=== PATIENT | male | born 1950 | race Caucasian/White ===

== ENCOUNTER 2021-11-01 18:25 | Inpatient (IN) | payer MEDICARE, SELFPAY ==
[2021-11-01 18:26] VITALS: BP 124/70; PULSE 92; RESP 16; TEMP 36.8; O2SAT 97; BMI 33.2
[2021-11-01 20:28] VITALS: BP 130/78; PULSE 78; RESP 14; TEMP 37.1; O2SAT 100
[2021-11-01 21:45] VITALS: BP 134/64; PULSE 88; RESP 14; TEMP 36.6; O2SAT 100
[2021-11-01 21:54] LABS: Absolute Lymphocyte Count 3.22 X10^3/uL (0.83-4.51); Absolute Neutrophil Count 7.6 X10^3/uL (2.0-7.7); Basophil# 0.07 X10^3/uL; Basophil% 0.6 % (0-1); Eosinophil# 0.37 X10^3/uL; Hematocrit 43.8 % (40-54); Hemoglobin 14.8 g/dL (13.0-16.5); Lymphocyte # 3.22 X10^3/ul (0.83-4.51); Lymphocyte % 26.1 % (19-41); Mean Corp Hgb Conc 33.8 g/dL (32-36); Mean Corpuscular Volume 88.8 fL (80-94); Mean Platelet Vol. 9.1 fl (6.2-12.0); Monocyte# 1.02 X10^3/uL; Monocyte% 8.3 % (0-10); NRBC Flagged by Analyzer 0 % (0-5); Neutrophil # 7.61 X10^3/uL (2.7-7.7); Neutrophil % 61.6 % (47-70); Platelet Count 215 K/mm3 (150-450); RBC Distribution Width CV 14.6 % (11.6-14.6); RBC Distribution Width SD 47.7 fl (35.1-43.9); Red Blood Count 4.93 M/mm3 (4.6-6.2); White Blood Count 12.3 K/mm3 (4.4-11.0)
[2021-11-01 22:00] VITALS: BP 134/78; PULSE 78; RESP 14; TEMP 36.6; O2SAT 98
--- NOTE | 2021-11-01 22:10 | RAD_ITS ---
EXAM: XR Foot Min 3 Views LEFT HISTORY: Injury/ 3rd toe infection TECHNIQUE: XR Foot Min 3 Views LEFT COMPARISON: None. LIMITATIONS: None. FINDINGS: 3 views of the left foot were obtained. Soft tissue swelling at the dorsum of the foot. There has been amputation at the fourth metatarsophalangeal joint. No gross osseous erosion to suggest osteomyelitis. No acute fracture. No dislocation. RAD/Foot min 3 Views IMPRESSION: Postsurgical changes. No definitive evidence of osteomyelitis. Electronically Signed: Maverick Palacios MD at 22:54 EDT ,
[2021-11-01 22:24] LABS: Anion Gap 7 (5-15); BUN 25 mg/dL (7-18); BUN/Creat Ratio 17.6 RATIO (10-20); Calcium,Total 9.5 mg/dL (8.5-10.1); Chloride 105 mmol/L (98-107); Creatinine, Serum 1.42 mg/dL (0.70-1.30); EST Glomerular Filtration Rate 52 mL/min (>60); Est Glom Filt Rate - Afr Amer 63 mL/min (>60); Estimated Creatinine Clearance 53.14 ml/min; Glucose 101 mg/dL (74-106); Potassium 4.4 mmol/L (3.5-5.1); Sodium Level 138 mmol/L (136-145)
[2021-11-01 22:28] LABS: Erythrocyte Sedimentation Rate 35 mm/hr (0-20)
[2021-11-01 23:00] VITALS: BP 134/78; PULSE 82; RESP 14; TEMP 37.1; O2SAT 100
[2021-11-02] VITALS (9 sets, daily range): BP systolic 117–142; BP diastolic 63–91; PULSE 65–84; RESP 16–18; TEMP 36.4–36.8; O2SAT 95–99; BMI 32.7
--- NOTE | 2021-11-02 00:10 | MRI_ITS ---
STUDY: MRI LEFT FOREFOOT WITHOUT CONTRAST REASON FOR EXAM: Infection of the second toe. TECHNIQUE: Standardized fat and water weighted pulse sequences were obtained in all 3 orthogonal planes. COMPARISON: Radiographs 11/01/2021. FINDINGS: Normal metatarsophalangeal joint of the hallux. There is arthrosis of the sesamoids-first metatarsal articulations with small marginal osteophytes and chondral thinning (T2 short axis images 14, 15). Normal interphalangeal joint of the hallux. Normal proximal and distal phalanges of the great toe. Normal medial and lateral heads of the flexor hallucis brevis tendons. Normal flexor and extensor hallucis longus tendons. Normal second, third and fifth metatarsophalangeal (MTP) joints. There is amputation of the fourth digit at the metatarsophalangeal joint. There is bone edema of the second distal phalanx (inversion recovery sagittal images 16, 17) with corresponding decreased T1 bone marrow signal (T1 sagittal images 16, 17) consistent with osteomyelitis. There is mild bone edema in the second middle phalanx (inversion recovery sagittal image 17) without decreased T1 bone marrow signal, either reactive bone edema or early osteomyelitis. There is an intermetatarsal neuroma of the second webspace (T1 short axis image 20) measuring 0.6 cm in transverse dimension. There is arthropathy of the first metatarsophalangeal joint with chondral thinning, subchondral cystic change and bone edema (inversion recovery sagittal images 21-23). There is arthropathy of the second tarsometatarsal articulation with chondral thinning and subchondral bone edema (inversion recovery images 16, 17). There is fat replacement of the intrinsic muscles of the forefoot (T1 sagittal images 5-19). There is edema in the subcutis adipose space. There is no demonstrated soft tissue abscess. There is a small ganglion cyst dorsal to the second metatarsal base (inversion recovery short axis image 7) measuring 0.6 cm in transverse dimension. MRI/Lower Ext/No Jt/w/o IMPRESSION: Osteomyelitis of the second distal phalanx, and mild bone edema of the second middle phalanx, either reactive bone edema or early osteomyelitis. Arthropathy of the first and second tarsometatarsal articulations. Arthrosis of the sesamoids-first metatarsal articulations. Intermetatarsal neuroma of the second webspace. Fat replacement of the intrinsic muscles of the forefoot suggestive of peripheral neuropathy. No demonstrated soft tissue abscess. Electronically Signed: Clive Valdez MD at 11:02 EDT ,
--- NOTE | 2021-11-02 00:10 | EX.ED.DYSGE1 ---
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 Patient follows with podiatry and has had a callus on the base of his second and third toe that is being watched and shaved off by his document review specialist. Notes over the past 24 hours he has had increased drainage, redness and swelling of the second toe. He does not have pain but notes he does have neuropathy and cannot really feel his feet well. Denies any injuries. No other complaints at this time. No reports of any fever or chills. No systemic symptoms. He states he is otherwise feeling well. Is not currently on any antibiotics. [facility] Medical History Gout HTN (hypertension) Kidney disease Neuropathy Home Medications multivitamin (Daily Multiple) 1 tab PO DAILY 01/14/15 [History Last Taken Unknown] metoprolol tartrate 25 mg tablet 25 mg PO BID ##60 01/15/15 [Rx Last Taken Unknown] rivaroxaban 15 mg tablet (Xarelto) 15 mg PO BID ##41 02/07/15 [Rx Last Taken Unknown] Allergy/AdvReac Type Severity Reaction Status Date / Time amoxicillin trihydrate Allergy Rash Verified 11/01/21 18:25 [From Augmentin] potassium clavulanate Allergy Rash Verified 11/01/21 18:25 [From Augmentin] Social History Smoking Status: Never smoker ROS [facility] ED Constitutional Constitutional ED: Denies chills, fever(s) or malaise Eyes Eyes: Denies blurry vision or loss of vision ENT ENT ED: Denies rhinorrhea or sore throat Cardiovascular Cardiovascular: Denies chest pain or dizziness Respiratory/Chest Respiratory/Chest: Denies cough or dyspnea Gastrointestinal Gastrointestinal: Denies nausea or vomiting Musculoskeletal Musculoskeletal: Denies arthralgias or myalgias Integumentary Reports wounds and other Details: Drainage and redness from left second toe ; Denies rash Neurologic Neurologic: Denies focal weakness, headache(s), paresthesias or weakness Psychiatric Psychiatric: Denies anxiety or behavioral changes EXAM Physical Exam Const Vital Signs: 11/01/21 18:26 11/01/21 20:28 11/01/21 21:45 Temperature 98.3 F 98.7 F 97.8 F Temperature Source Temporal Temporal Temporal Pulse Rate 92 78 88 Respiratory Rate 16 14 14 Blood Pressure 124/70 H 130/78 H 134/64 H Blood Pressure Mean 88 95 87 Pulse Ox 97 100 100 Oxygen Delivery Method Room Air Room Air Room Air 11/01/21 22:00 11/01/21 23:00 Temperature 97.9 F 98.7 F Temperature Source Temporal Temporal Pulse Rate 78 82 Respiratory Rate 14 14 Blood Pressure 134/78 H 134/78 H Blood Pressure Mean 96 96 Pulse Ox 98 100 Oxygen Delivery Method Room Air Room Air Positive well nourished, well developed and no apparent distress General Appearance ED: well developed HEENT Reports normocephalic atraumatic Nose: no nasal discharge External Ear: external ears normal Mouth ED: Yes moist mucous membranes normal Eyes PERRL and EOMs intact bilaterally Neck full ROM and no meningeal signs Chest Wall inspection of chest normal Resp normal respiratory effort and normal air movement Cardio regular rate and regular rhythm GI normal to inspection, nondistended, normoactive bowel sounds Extremity full ROM Extremity Narrative: Patient has hammertoe deformity of the toes. Diffuse swelling of the left second toe. Surgically absent left fourth toe. 2+ bilateral DP pulses Neuro oriented x3 and no focal motor deficits Psych mental status grossly normal and thought process normal Skin Skin Narrative: Slightly green tinge purulent drainage from the distal left second toe. There is erythema diffusely of the left second toe spreading to the distal, dorsal forefoot. MDM MDM MDM Narrative Medical decision making narrative: Patient evaluated for 24 to 48 hours of worsening redness and swelling of his left second toe. I am concerned for osteomyelitis/infection. He systemically is well-appearing with normal vital signs. I do not suspect sepsis at this time. He does have a mild leukocytosis of 12.3. ESR and CRP are elevated. He has an elevated creatinine 1.42 which does appear to be near his baseline. X-ray interpreted by myself as well as radiology does not show any acute abnormalities. On repeat evaluation patient now has lymphangitic streaking going up the medial aspect of the foot up to the ankle. Given the progression of the short time that he has been here we will admit him for IV antibiotics. He started on IV vancomycin and meropenem given that he has a documented allergy to amoxicillin. Case was discussed with his document review specialist who will also see him tomorrow. Patient and are agreeable this plan of care. Patient denies any pain while in the emergency room. Lab Data Attestation: I reviewed the patient's lab results. Labs: Laboratory Results - last 24 hr 11/01/21 11/01/21 21:32 21:32 WBC 12.3 H RBC 4.93 Hgb 14.8 Hct 43.8 MCV 88.8 MCH 30.0 MCHC 33.8 RDW Std Deviation 47.7 H RDW Coeff of Jay 14.6 Plt Count 215 MPV 9.1 Immature Gran % (Auto) 0.400 Neut % (Auto) 61.6 Lymph % (Auto) 26.1 [place] % (Auto) 8.3 Eos % (Auto) 3.0 Baso % (Auto) 0.6 Absolute Neuts (auto) 7.6 Absolute Lymphs (auto) 3.22 Nucleated RBC % 0 ESR 35 H Sodium 138 Potassium 4.4 Chloride 105 Carbon Dioxide 26.0 Anion Gap 7 BUN 25 H Creatinine 1.42 H Estim Creat Clear Calc 53.14 Est GFR (MDRD) Af Amer 63 Est GFR (MDRD) Non-Af 52 L BUN/Creatinine Ratio 17.6 Glucose 101 Calcium 9.5 C-React Prot High Sens 61.90 H Radiography Diagnostic Testing: Clinical Impression(s) from Imaging Studies Foot X-Ray 11/01/21 22:10 IMPRESSION: Postsurgical changes. No definitive evidence of osteomyelitis. Electronically Signed: Maverick Palacios MD at 22:54 EDT , Discharge Plan Triage Chief Complaint: Wound Check ED Provider: Afia Frye Dx/Rx/DC Orders Clinical Impression: Cellulitis of left foot, Renal insufficiency, Ulcer of left foot, Leukocytosis Prescriptions: No Action multivitamin [Daily Multiple] 1 EACH tablet 1 tab PO DAILY Label Comments: supplement metoprolol tartrate 25 MG tablet 25 mg PO BID Qty: 60 0RF Label Comments: blood pressure/heart rivaroxaban [Xarelto] 15 MG tablet 15 mg PO BID Qty: 41 0RF Primary Care Provider: Karla Ryan Referrals: Karla Ryan MD [Primary Care Provider] - Disposition Disposition: Acute Care [facility]
--- NOTE | 2021-11-02 00:36 | HP.PCM.HOS_ITS ---
[facility] - General General Date of Admission: 11/02/21 Date of Service: 11/02/21 Chief Complaint: Left foot cellulitis HPI Narrative JULIA VERA, is a 71 M who presented to the emergency department at [facility] on 11/01/2021 with erythema and swelling of the left second digit of his foot. Patient has a history of a fourth toe amputation with neuropathy treated by dietary previously. The patient follows with podiatry and had a callus on the base of his second and third toe that had been watched closely and recently shaved off. The patient noted that over the last 24 hours he had increased drainage redness and edema of the second toe. He does not have significant pain however he has neuropathy at baseline. He had no known injuries other than the above. He has no other complaints and denies fever and chills. No systemic involvement at this time. He had not been treated with antibiotics. He developed lymphangitic streaking up into the medial ankle while in the emergency department. Vital signs on presentation showed a temperature of 98.3, pulse of 92, blood pressure 124/70, respirate of 16, and saturation of 97% on room air. His CBC showed a mild leukocytosis at 12.3 with no left shift. His ER*was elevated at 35 and his CRP was elevated at 61.9. His chemistry panel showed normal electrolytes with an elevated BUN and creatinine at 25 and 1.42 respectively. These appear to be at his baseline. Cultures of the toe and staff aureus PCR of the wound were performed in the emergency department and pending on admission. Imaging of the foot was performed and showed no evidence of osteomyelitis but di d show soft tissue swelling. Podiatry was consulted by the emergency department and given his elevated inflammatory markers and appearance an MRI was requested and antibiotics were initiated and Vanco and meropenem given his penicillin allergy at baseline. [facility] Medical History (Updated 11/02/21 @ 00:[address] Katie Rodriguez DO) Amputation toe Gout HTN (hypertension) Kidney disease Neuropathy Obesity (BMI 30.0-34.9) Stage 3b chronic kidney disease (CKD) Home Medications multivitamin (Daily Multiple) 1 tab PO DAILY VITAMIN 01/14/15 [History Last Taken Unknown] allopurinol 100 mg tablet 100 tab PO DAILY GOUT 11/02/21 [History Last Taken Unknown] colchicine 0.6 mg tablet 1 tab PO MOWEFR GOUT 11/02/21 [History Last Taken Unknown] lisinopril 10 mg tablet 10 tab PO DAILY BP 11/02/21 [History Last Taken Unknown] Allergy/AdvReac Type Severity Reaction Status Date / Time amoxicillin trihydrate Allergy Rash Verified 11/01/21 18:25 [From Augmentin] potassium clavulanate Allergy Rash Verified 11/01/21 18:25 [From Augmentin] Family History (Updated 11/02/21 @ 00:[address] Katie Rodriguez DO) Other Hypertension Social History (Updated 11/02/21 @ 00:[address] Katie Rodriguez DO) household members: spouse housing: house Smoking Status: Never smoker alcohol intake: never substance use type: does not use Vital Signs Vital Signs Vital Signs: 11/01/21 18:26 11/01/21 20:28 11/01/21 21:45 Temperature 98.3 F 98.7 F 97.8 F Temperature Source Temporal Temporal Temporal Pulse Rate 92 78 88 Respiratory Rate 16 14 14 Blood Pressure 124/70 H 130/78 H 134/64 H Blood Pressure Mean 88 95 87 Pulse Ox 97 100 100 Oxygen Delivery Method Room Air Room Air Room Air 11/01/21 22:00 11/01/21 23:00 11/02/21 00:04 Temperature 97.9 F 98.7 F 98.3 F Temperature Source Temporal Temporal Oral Pulse Rate 78 82 69 Respiratory Rate 14 14 16 Blood Pressure 134/78 H 134/78 H 133/69 H Blood Pressure Mean 96 96 90 Pulse Ox 98 100 97 Oxygen Delivery Method Room Air Room Air Room Air Weight Weight: 114.2 kg Body Mass Index (BMI) 33.2 Physical Exam Const alert, oriented x3, no apparent distress, healthy appearing and well nourished Constitutional Narrative: Obese older white male sitting up in bed, at bedside, patient appears comfortable and nontoxic General Appearance: cooperative HEENT normocephalic, head/scalp atraumatic, hearing grossly normal bilaterally and moist oral mucous membranes HEENT Narrative: Dentition is poor, Mallampati is 2-3, no thrush Mouth: oral and palatal mucosa normal Eyes PERRL, EOMs intact bilaterally and conjunctivae normal Eyes Narrative: No scleral icterus Neck no lymphadenopathy, supple, no JVD and no carotid bruits Neck Narrative: Trachea midline, no thyroid enlargement Resp normal respiratory effort, no retractions, no use of accessory muscles and clear to auscultation bilaterally Auscultation: Negative for crackles, rales, rhonchi or wheezes Cardio regular rate, regular rhythm, S1 normal heart sound, S2 normal heart sound, no murmurs, no rub, no gallops, no clicks and no JVD GI normal to inspection, nondistended, normoactive bowel sounds, soft to palpation, non-tender and non-distended; Negative for hepatosplenomegaly Extremity Extremity Narrative: Mild edema left lower extremity, erosion/ulceration at the distal tip of the second digit with missing digits on his left foot as well, some lymphangitic streaking up to the ankle medially, second digit is erythematous, right lower foot without cyanosis clubbing or edema Skin skin turgor normal, no jaundice, no petechiae and no mottling Neuro oriented x3, CN's II-XII intact bilaterally, moves all extremities and no focal motor deficits Neuro Narrative: Bilateral lower extremity neuropathy Sensorium / Orientation: awake and alert Speech: speech normal Motor Exam: strength 5/5 throughout Psych affect normal Psych Narrative: Very pleasant and appropriately interactive Results Lab / Micro Data Attestation: I reviewed the patient's lab results. Result Diagrams: 11/01/21 21:32 11/01/21 21:32 Labs: Laboratory Results - last 24 hr 11/01/21 21:32: WBC 12.3 H, RBC 4.93, Hgb 14.8, Hct 43.8, MCV 88.8, MCH 30.0, MCHC 33.8, RDW Std Deviation 47.7 H, RDW Coeff of Jay 14.6, Plt Count 215, MPV 9.1, Immature Gran % (Auto) 0.400, Neut % (Auto) 61.6, Lymph % (Auto) 26.1, [place] % (Auto) 8.3, Eos % (Auto) 3.0, Baso % (Auto) 0.6, Absolute Neuts (auto) 7.6, Absolute Lymphs (auto) 3.22, Nucleated RBC % 0, ESR 35 H 11/01/21 21:32: Sodium 138, Potassium 4.4, Chloride 105, Carbon Dioxide 26.0, Anion Gap 7, BUN 25 H, Creatinine 1.42 H, Estim Creat Clear Calc 53.14, Est GFR (MDRD) Af Amer 63, Est GFR (MDRD) Non-Af 52 L, BUN/Creatinine Ratio 17.6, Glucose 101, Calcium 9.5, C-React Prot High Sens 61.90 H Radiology Impression Foot X-Ray 11/01/21 22:10 IMPRESSION: Postsurgical changes. No definitive evidence of osteomyelitis. Electronically Signed: Maverick Palacios MD at 22:54 EDT , Assessment & Plan Assessment/Plan (1) Cellulitis of left foot: (2) Ulcer of left foot: (3) Leukocytosis: (4) Obesity (BMI 30.0-34.9): PLAN: Plan Ulceration/cellulitis of the left foot -Concern for osteomyelitis of the second digit -Sed rate and CRP are elevated -Wound cultures and wound MRSA PCR pending -MRI in a.m. -Will make n.p.o. for now in case patient is able to go to the OR tomorrow -X-ray of the foot performed the emergency department that showed postsurgical changes and no definitive evidence of OM -Vancomycin and meropenem given penicillin allergy -Consult podiatry Leukocytosis -Suspect related to the above -Repeat CBC in a.m. -Should trend down with antibiotic treatment History of gout -Continue allopurinol and colchicine Hypertension -Continue lisinopril CKD stage IIIb -Serum creatinine 1.42 on admission which appears to be his baseline -Continue to monitor -Avoid nephrotoxins Obesity -BMI 33.2 -Recommend weight loss -Complicates treatment, prognosis, outcomes DVT prophylaxis -Lovenox subcu daily -SCDs CODE STATUS Full code verified the emergency department on admission Charges/Coding Visit Charges Inpatient E&M: 36547 Init Hosp L3
--- NOTE | 2021-11-02 03:37 | PCM.RX.CS ---
Consult Pharmacy has been consulted to manage selected antiobiotic: Vancomycin Type of Consult: New start Suspected Infection: Skin/Soft tissue Labs: Sodium 138 mmol/L (136-145) 11/01/21 21:32 Potassium 4.4 mmol/L (3.5-5.1) 11/01/21 21:32 Chloride 105 mmol/L (98-107) 11/01/21 21:32 Carbon Dioxide 26.0 mmol/L (21.0-32.0) 11/01/21 21:32 Anion Gap 7 (5-15) 11/01/21 21:32 BUN 25 mg/dL (7-18) H 11/01/21 21:32 Creatinine 1.42 mg/dL (0.70-1.30) H 11/01/21 21:32 Est GFR (MDRD) Af Amer 63 mL/min (>60) 11/01/21 21:32 Est GFR (MDRD) Non-Af 52 mL/min (>60) L 11/01/21 21:32 BUN/Creatinine Ratio 17.6 RATIO (10-20) 11/01/21 21:32 Glucose 101 mg/dL (74-106) 11/01/21 21:32 Weight used for dosin.1 kg Estimated Creatinine Clearance: 61.5 Goal Trough: 10-15 mcg/mL Pharmacy Plan for Drug Dosing: Pharmacy Service will continue to monitor and adjust dosing as required. Medications Vancomycin HCl (Vancomycin) 1,000 mg in 200 mls @ 200 mls/hr IV Q12H MERCED Discontinued Medications Vancomycin HCl 2,000 mg/ (Sodium Chloride) 540 mls @ 250 mls/hr IV X1 ONE Stop: 11/02/21 02:16 Last Admin: 11/02/21 01:25 Dose: 250 mls/hr Follow-Up Labs: Trough Vancomycin Labs to be done on [date and time ordered]: 11/03 @ 1300
[2021-11-02 06:04] LABS: M R Staph aureus DNA By PCR Negative (Negative); Probe Check PASS; Specimen Processing Control PASS; Staph aureus DNA By PCR NEGATIVE (Negative)
[2021-11-02 06:39] LABS: Absolute Lymphocyte Count 3.05 X10^3/uL (0.83-4.51); Absolute Neutrophil Count 5.6 X10^3/uL (2.0-7.7); Basophil# 0.06 X10^3/uL; Basophil% 0.6 % (0-1); Eosinophil# 0.44 X10^3/uL; Eosinophils% 4.3 % (0-5); Hemoglobin 14.9 g/dL (13.0-16.5); Lymphocyte # 3.05 X10^3/ul (0.83-4.51); Mean Corp Hgb Conc 33.1 g/dL (32-36); Mean Corpuscular Hgb 29.5 pg (27.0-32.0); Mean Corpuscular Volume 89.1 fL (80-94); Mean Platelet Vol. 9.6 fl (6.2-12.0); Monocyte# 0.96 X10^3/uL; Monocyte% 9.4 % (0-10); NRBC Flagged by Analyzer 0 % (0-5); Neutrophil % 55.1 % (47-70); Platelet Count 220 K/mm3 (150-450); RBC Distribution Width CV 14.6 % (11.6-14.6); RBC Distribution Width SD 47.7 fl (35.1-43.9); Red Blood Count 5.05 M/mm3 (4.6-6.2); White Blood Count 10.2 K/mm3 (4.4-11.0)
[2021-11-02 07:03] LABS: Anion Gap 6 (5-15); BUN 23 mg/dL (7-18); BUN/Creat Ratio 18.5 RATIO (10-20); Calcium,Total 9.3 mg/dL (8.5-10.1); Chloride 106 mmol/L (98-107); Creatinine, Serum 1.24 mg/dL (0.70-1.30); EST Glomerular Filtration Rate 61 mL/min (>60); Est Glom Filt Rate - Afr Amer 74 mL/min (>60); Glucose 101 mg/dL (74-106); Magnesium 2.2 mg/dL (1.6-2.6); Potassium 3.9 mmol/L (3.5-5.1); Sodium Level 138 mmol/L (136-145)
--- NOTE | 2021-11-02 07:23 | CON.PCM_ITS ---
Assessment & Plan Assessment/Plan (1) Cellulitis of left foot: PLAN: Patient was seen at bedside this morning with Hue Ortiz. Photo of patient wound is in chart. This patient has full thickness ulceration of left 2nd toe that measures 1.5 cm x 1.5 cm. There is increased swelling of left 2nd toe and increased inflammatory markers (esr/crp). These findings have me very concerned for at minimum, osteomyelitis of distal phalanx of left 2nd toe. Today we discussed this ulceration in great detail. We discussed that if oste omyelitis were present to the wound, he could possibly treat with antibiotics but given the large wound, the large amount of swelling, amputation would likely be most definitive cure. Patient agreeable to the possibility of amputation if it can help to eliminate problems in the future. I am going to await results of mri. MRi is necessary to evaluate for underlying osteomyelitis. If osteomyelitis present, he would likely benefit at minimum, distal syme amputation. Will allow patient to eat and will make npo thereafter once we review the mri and can find time to arrange surgery. I discussed past pvr that were performed in my outpatient clinic. he has palpable pulses on exam however, he has small vessel disease. any form of amputation does place him at risk of slow healing and this was discussed. Today, a full thickness debridement was performed with tissue nippers. total debridement was performed thru subcutaneous tissue with tissue nippers. Total debridement was 1.5 cm x 1.5 cm. bleeding was present and controlled with pressure. The toe was then bandaged with aquacel and guaze. will continue with antibiotics. Continue with antibiotics await mri results. (2) Ulcer of left foot: PLAN: as above (3) Hammertoe of left foot: PLAN: I discussed the hammertoes of left 2nd, 3rd and left 5th toe. I do suspect osteomyelitis is present to left 2nd toe and if present, will plan for amputation accordingly. I informed patient that any amputation of the 2nd toe will place pressure on third toe and this will likely be the next area of skin breakdown. We discussed correction of 3rd toe by way of tenotomy or arthroplasty. we also discussed correction of 5th toe with arthroplasty as I do not feel tenotomy of the 5th toe alone would lead to correction. While I do feel this patient would require correction of 3rd and 5th toe, I feel that at this time in presence of infection, I feel elective correction of ham mertoe would be best performed once any infection of 2nd toe is resolved. Patient agrees and for this reason, we would plan for amputation of 2nd toe and once he heals the 2nd toe, would then make plans to intervene on the remaining toes. Patient also informed that if he begins losing multiple toes, he could opt to amputate the remaining toes. fiona is not interested in this option and unde rstands that if he does lose his 2nd toe, the remaining toes are subject to transfer lesions. HPI Consult Data Date of Consult: 11/02/21 HPI Narrative Reason for Consultation: cellulitis with ulceration, left 2nd toe HPI Narrative: JULIA VERA, is a 71 M who presents to the hospital with cellulitis of left 2nd toe. Patient states that over the past 2 days, he has noticed redness and swelling to his left 2nd toe. He presented to the hospital yesterday and was subsequently admitted for ulceration with underlying cellulitis. of note, patient has history of callus/ulceration of both left 2nd and left 3rd toe following amputation of left 4th toe several months ago. This patient had been offered flexor tenotomy of left 2nd and left 3rd toe and was actually scheduled. Flexor tenotomy was planned to help eliminate pressure to the tips of the 2nd and 3rd toes thereby decreasing risk of ulceration. Unfortunately, patient had to cancel his scheduled procedure. Due to the increased pressure on his toes, he has developed ulceration of left 2nd toe and now has redness and swelling. He is currently admitted to the hospital. He is on vancomycin and Zosyn. He is tolerating this nicely. [facility] Medical History (Updated 11/02/21 @ 07:[address] Jose Holman, CHELSIE) Amputation toe Asthma DVT (deep venous thrombosis) Gout HTN (hypertension) Kidney disease Neuropathy Obesity (BMI 30.0-34.9) Stage 3b chronic kidney disease (CKD) Home Medications multivitamin (Daily Multiple) 1 tab PO DAILY VITAMIN 01/14/15 [History Last Taken Unknown] allopurinol 100 mg tablet 100 tab PO DAILY GOUT 11/02/21 [History Last Taken Unknown] colchicine 0.6 mg tablet 1 tab PO MOWEFR GOUT 11/02/21 [History Last Taken Un known] lisinopril 10 mg tablet 10 tab PO DAILY BP 11/02/21 [History Last Taken Unknown] Allergy/AdvReac Type Severity Reaction Status Date / Time amoxicillin trihydrate Allergy Rash Verified 11/01/21 18:25 [From Augmentin] potassium clavulanate Allergy Rash Verified 11/01/21 18:25 [From Augmentin] Family History (Updated 11/02/21 @ 00:[address] Katie Rodriguez DO) Other Hypertension Social History (Updated 11/02/21 @ 00:[address] Katie Rodriguez DO) household members: spouse housing: house Smoking Status: Never smoker alcohol intake: never substance use type: does not use Physical Exam Narrative Patient is alert and orientated x 3. he does not appear in any distress. Vascular: DP and PT pulses are palpable to left foot. CFT is brisk. Skin temperature is warm to warm. mild erythema is noted to left distal 2nd toe . + swelling present to left 2nd toe Derm: there is full thickness ulceration to the left 2nd toe that measures 1.5 cm x 1.5 cm. there is mild periwound erythema and callus. No drainage is noted to left 2nd toe ulceration. m/s: There is semi-reducible hammertoe of left 2nd and left 3rd toe. there is rigid hammertoe of left 5th toe. There is amputation of left 4th toe. Neuro: loss of protective sensation is noted to left foot xrays reviewed: + soft-tissue swelling of left foot. no gas in soft-tissue. no obvious signs of osteomyelitis. Lab / Micro Data Result Diagrams: 11/02/21 05:16 11/02/21 05:16 Labs: Laboratory Results - last 24 hr 11/01/21 21:32: WBC 12.3 H, RBC 4.93, Hgb 14.8, Hct 43.8, MCV 88.8, MCH 30.0, MCHC 33.8, RDW Std Deviation 47.7 H, RDW Coeff of Jay 14.6, Plt Count 215, MPV 9.1, Immature Gran % (Auto) 0.400, Neut % (Auto) 61.6, Lymph % (Auto) 26.1, [place] % (Auto) 8.3, Eos % (Auto) 3.0, Baso % (Auto) 0.6, Absolute Neuts (auto) 7.6, Absolute Lymphs (auto) 3.22, Nucleated RBC % 0, ESR 35 H 11/01/21 21:32: Sodium 138, Potassium 4.4, Chloride 105, Carbon Dioxide 26.0, Anion Gap 7, BUN 25 H, Creatinine 1.42 H, Estim Creat Clear Calc 53.14, Est GFR (MDRD) Af Amer 63, Est GFR (MDRD) Non-Af 52 L, BUN/Creatinine Ratio 17.6, Glucose 101, Calcium 9.5, C-React Prot High Sens 61.90 H 11/01/21 23:40: S.aureus Protein A PCR NEGATIVE, MRSA (PCR) Negative 11/02/21 05:16: WBC 10.2, RBC 5.05, Hgb 14.9, Hct 45.0, MCV 89.1, MCH 29.5, MCHC 33.1, RDW Std Deviation 47.7 H, RDW Coeff of Jay 14.6, Plt Count 220, MPV 9.6, Immature Gran % (Auto) 0.600, Neut % (Auto) 55.1, Lymph % (Auto) 30.0, [place] % (Auto) 9.4, Eos % (Auto) 4.3, Baso % (Auto) 0.6, Absolute Neuts (auto) 5.6, Absolute Lymphs (auto) 3.05, Nucleated RBC % 0 11/02/21 05:16: Sodium 138, Potassium 3.9, Chloride 106, Carbon Dioxide 26.0, A nion Gap 6, BUN 23 H, Creatinine 1.24, Estim Creat Clear Calc 59.10, Est GFR (MDRD) Af Amer 74, Est GFR (MDRD) Non-Af 61, BUN/Creatinine Ratio 18.5, Glucose 101, Calcium 9.3, Magnesium 2.2 11/02/21 05:16: Phosphorus 3.0 Radiology Impression Foot X-Ray 11/01/21 22:10 IMPRESSION: Postsurgical changes. No definitive evidence of osteomyelitis. Electronically Signed: Maverick Palacios MD at 22:54 EDT ,
[2021-11-02] MEDS: Allopurinol 100 MG Tablet PO (08:05)
[2021-11-02] MEDS: Lisinopril 10 MG Tablet PO (08:05)
[2021-11-02] MEDS: Metoprolol Tartrate 25 MG Tablet PO (08:05)
[2021-11-02] MEDS: Multivitamins,Therapeutic Tablet 1 TABLET PO (08:06)
--- NOTE | 2021-11-02 08:23 | WOUNDNOTE ---
wound photo: left 2nd toe
--- NOTE | 2021-11-02 10:03 | PN.HOSP_ITS ---
Subjective Subjective Patient seen and examined. He had no active complaints. He denied any pain in his foot due to neuropathy. He is due for MRI of the foot today. REview of systems is otherwise negative. Objective Data Objective Data Vital Signs: Vital Signs Temp Pulse Resp BP Pulse Ox 97.8 F 81 16 142/91 H 95 11/02/21 06:23 11/02/21 08:05 11/02/21 06:23 11/02/21 06:23 11/02/21 06:38 Oxygen Delivery Method Room Air Weight: 247 lb 2.211 oz Body Mass Index (BMI) 32.7 Intake & Output: Intake and Output for Last 24 Hours 10/31/21 11/01/21 11/02/21 23:59 23:59 23:59 Intake Total 720 / 720 Balance 720 / 720 Lab / Micro Data Result Diagrams: 11/02/21 05:16 11/02/21 05:16 Labs: Laboratory Results - last 24 hr 11/01/21 21:32: WBC 12.3 H, RBC 4.93, Hgb 14.8, Hct 43.8, MCV 88.8, MCH 30.0, MCHC 33.8, RDW Std Deviation 47.7 H, RDW Coeff of Jay 14.6, Plt Count 215, MPV 9.1, Immature Gran % (Auto) 0.400, Neut % (Auto) 61.6, Lymph % (Auto) 26.1, [place] % (Auto) 8.3, Eos % (Auto) 3.0, Baso % (Auto) 0.6, Absolute Neuts (auto) 7.6, Absolute Lymphs (auto) 3.22, Nucleated RBC % 0, ESR 35 H 11/01/21 21:32: Sodium 138, Potassium 4.4, Chloride 105, Carbon Dioxide 26.0, Anion Gap 7, BUN 25 H, Creatinine 1.42 H, Estim Creat Clear Calc 53.14, Est GFR (MDRD) Af Amer 63, Est GFR (MDRD) Non-Af 52 L, BUN/Creatinine Ratio 17.6, Glucose 101, Calcium 9.5, C-React Prot High Sens 61.90 H 11/01/21 23:40: S.aureus Protein A PCR NEGATIVE, MRSA (PCR) Negative 11/02/21 05:16: WBC 10.2, RBC 5.05, Hgb 14.9, Hct 45.0, MCV 89.1, MCH 29.5, MCHC 33.1, RDW Std Deviation 47.7 H, RDW Coeff of Jay 14.6, Plt Count 220, MPV 9.6, Immature Gran % (Auto) 0.600, Neut % (Auto) 55.1, Lymph % (Auto) 30.0, [place] % (Auto) 9.4, Eos % (Auto) 4.3, Baso % (Auto) 0.6, Absolute Neuts (auto) 5.6, Absolute Lymphs (auto) 3.05, Nucleated RBC % 0 11/02/21 05:16: Sodium 138, Potassium 3.9, Chloride 106, Carbon Dioxide 26.0, Anion Gap 6, BUN 23 H, Creatinine 1.24, Estim Creat Clear Calc 59.10, Est GFR (MDRD) Af Amer 74, Est GFR (MDRD) Non-Af 61, BUN/Creatinine Ratio 18.5, Glucose 101, Calcium 9.3, Magnesium 2.2 11/02/21 05:16: Phosphorus 3.0 Micro: Microbiology 11/01/21 23:40 Wound - Left Foot Gram Stain - Final Radiography Diagnostic Testing: Radiology Impression Foot X-Ray 11/01/21 22:10 IMPRESSION: Postsurgical changes. No definitive evidence of osteomyelitis. Electronically Signed: Maverick Palacios MD at 22:54 EDT Reading Location ID and State: [address] [place] [address] Tel , Service support , Physical Exam Const alert, oriented x3 and no apparent distress HEENT head/scalp atraumatic and moist oral mucous membranes Mouth: oral and palatal mucosa normal Eyes PERRL, EOMs intact bilaterally and conjunctivae normal Neck no lymphadenopathy and supple Resp normal respiratory effort, no retractions, no use of accessory muscles and clear to auscultation bilaterally Cardio regular rate, regular rhythm, S1 normal heart sound, S2 normal heart sound and no murmurs GI normal to inspection, nondistended, normoactive bowel sounds, soft to palpation, non-tender and non-distended Extremity Extremity Narrative: lef foot wrapped in bandage Skin Skin Narrative: as under extremity Neuro Sensorium / Orientation: awake and alert Motor Exam: strength 5/5 throughout Psych affect normal Assessment & Plan Assessment/Plan (1) Cellulitis of left foot: PLAN: Plan #Ulceration and cellulitis of the left foot * on IV vancomycin and meropenem * podiatry on board * for MRI today to determine if there is osteomyelitis * wound cultures pending * #CKD stage 3B: stable. Cr at baseline #Hypertension: on lisinopril and metoprolol #History of gout: on allopurinol and colchicine #DVT prophylaxis: lovenox Charges/Coding Visit Charges Inpatient E&M: 17201 Subs Hosp L3
--- NOTE | 2021-11-02 10:50 | CASEMGMT ---
ED CASTANON Assessment: Face to Face with pt for initial transition planning/care coordination assessment. RN KINA introduced self and role at [facility], pt voices understanding and consents to assessment. Pt is A/O x4 and answers all questions appropriately at this time. Pt sitting up in bed in no distress with at bedside. Care providers, pharmacy, and demographics verified/updated. Admitting Dx: L foot infection PCP:Shelby Specialists:Manda, pod; Hoda, rheum; Preferred Pharmacy: Insurance: Prescription Benefit: yes LW/HPOA: Pt denies having a LW/DPOA and denies need for info regarding AD. LNOK: Nikki Ferrara, ; Gilbert Ferrara, dtr Living Arrangements: Pt lives with and dtr in a single story house with 5 steps to enter with a rail. Pt reports he is I in ADL's and denies concerns at home. Transportation: Pt drives self and denies concerns with transportation. DME/HHC/SNF: Pt has crutches at home but does not use. No other DME. Pt denies hx of HHC or SNF stays. Pt states no concerns with going home at time of dc. Discussed if pt should need care at home such as wound care or IV atb if he would have a teachable and willing cg. Pt states she would learn any care pt needs. Pt states no further concerns/needs. CM to follow. Advised pt to ask CM if any further question/concerns/needs arise, voices understanding. Pt Goal: Home Plan: Home, will assess for any needs as care progresses
[2021-11-02] MEDS: Vancomycin IV 1,000 MG/200 ML BAG 200 MG IV (13:14)
[2021-11-02] MEDS: 0.9% Saline Lock 10 ML Syringe IV (21:26)
[2021-11-03] VITALS (8 sets, daily range): BP systolic 116–137; BP diastolic 63–81; PULSE 65–86; RESP 16; TEMP 36.4–37; O2SAT 95–99; BMI 32.5
--- NOTE | 2021-11-03 | BON_PTH ---
PATIENT: JULIA VERA LOC: MS3 U#:[id number] AGE/SX: 71/M [place] [facility] [place]: Dr. Loreto Fish MD : 1950 BED: 1 DIS: 11/05/2021 SPEC #: [id number] RECD: 11/03/21 15:07 STATUS: LONNIE MTZ #: [id number] KIRILL: 11/03/21 00:[address]: Jose Holman DEPT: SURGICAL PATHOLOGY RECD BY: Kevin Garcia ENTERED: 11/06/21 08:43 SP TYPE: Bone OTHR DR: DO Dr. Karla Barrientos MD Dr. Matthew Testrake, DPM Dr. Loreto Fish MD Tissues: A - Bone of foot, NOS B - Bone of foot, NOS C - Bone of foot, NOS Procedures: Decalcification bone/plaque Surgery Specimen Level IV Surgery Specimen Level V Comments: @ Ordering doctor for DEC edited from to DR.MTESTR Ana OROSCO at 11/06/21 1430 @ Ordering doctor for SUIII edited from to DR.MTESTR Ana OROSCO at 11/06/21 1430 @ Submitting doctor edited from to @ anitha OROSCO at 11/06/21 1430 HEADER OPERATION: Partial second toe amputation, left second toe PRE-OP DIAGNOSIS: Infected ulceration of left second toe TISSUE SUBMITTED: A - Left distal second phalanx, B - Left proximal second phalanx, C - Left second toe MICROSCOPIC DIAGNOSIS A. Left distal second phalanx bone, biopsy: Acute osteomyelitis. B. Left proximal second phalanx bone, biopsy: Focal reparative change. No evidence of osteomyelitis. C. Left second toe, partial amputation: Skin and soft tissue with acute and chronic inflammation and granulation with associated ulceration. Bone with reparative and reactive change and focal changes suggestive of acute osteomyelitis. AM:amol 11/09/2021 MICROSCOPIC DESCRIPTION Slides are reviewed. GROSS DESCRIPTION A - Received in fixative is one container labeled with the patient's name and designated left distal second phalanx. The specimen consists of a piece of bone measuring 0.6 x 0.4 x 0.2 cm. A string-like piece of adipose tissue is attached at one end measuring 1.2 cm in length and 0.1 cm in diameter. The specimen is totally submitted in one cassette after decalcification. B - Received in fixative is one container labeled with the patient's name and designated left proximal second phalanx. The specimen consists of a cylindrical piece of bone measuring 0.5 cm in length and 0.6 cm in diameter. The entire specimen is submitted in one cassette after decalcification. C - Received in fixative is one container labeled with the patient's name and designated left second toe. The specimen consists of a portion of great toe partly disrupted measuring 3 x 2.5 x 2 cm. A focal area of ulceration is noted at the tip of the toe. Medical Records Analyst sections are submitted in two cassettes as follows: 1 ? ulcerated area, 2 ? bone after decalcification. / SJ:rg 11/06/2021 TC:2 CPT: 84218 x2, 60570, 59897 x2
[2021-11-03] MEDS: Vancomycin IV 1,000 MG/200 ML BAG 200 MG IV ×2 (01:30→15:13)
--- NOTE | 2021-11-03 05:55 | EKG12_ITS ---
Test Reason : AM EKG Blood Pressure : / mmHG Vent. Rate : 082 BPM Atrial Rate : 082 BPM P-R Int : 182 ms QRS Dur : 140 ms QT Int : 420 ms P-R-T Axes : 061 094 023 degrees QTc Int : 490 ms Normal sinus rhythm Right bundle branch block Abnormal ECG When compared with ECG of 15-MAR-2007 15:55, Right bundle branch block is now Present Confirmed by EDA HALE, GRETCHEN ([id number]), non linear editor EMILY CONNOR ([id number]) on 11/03/2021 1:33:00 PM Referred By: IBIS Confirmed By:GRETCHEN VERAS MD
[2021-11-03 06:27] LABS: Absolute Lymphocyte Count 2.75 X10^3/uL (0.83-4.51); Absolute Neutrophil Count 8.2 X10^3/uL (2.0-7.7); Basophil# 0.08 X10^3/uL; Basophil% 0.6 % (0-1); Eosinophil# 0.54 X10^3/uL; Eosinophils% 4.2 % (0-5); Hematocrit 43.6 % (40-54); Hemoglobin 14.7 g/dL (13.0-16.5); Lymphocyte # 2.75 X10^3/ul (0.83-4.51); Lymphocyte % 21.5 % (19-41); Mean Corp Hgb Conc 33.7 g/dL (32-36); Mean Corpuscular Hgb 29.5 pg (27.0-32.0); Mean Corpuscular Volume 87.6 fL (80-94); Mean Platelet Vol. 9.3 fl (6.2-12.0); Monocyte# 1.17 X10^3/uL; Monocyte% 9.1 % (0-10); NRBC Flagged by Analyzer 0 % (0-5); Neutrophil # 8.21 X10^3/uL (2.7-7.7); Neutrophil % 64.1 % (47-70); Platelet Count 220 K/mm3 (150-450); RBC Distribution Width CV 14.7 % (11.6-14.6); RBC Distribution Width SD 47.6 fl (35.1-43.9); Red Blood Count 4.98 M/mm3 (4.6-6.2); White Blood Count 12.8 K/mm3 (4.4-11.0)
[2021-11-03 07:00] LABS: Anion Gap 4 (5-15); BUN 27 mg/dL (7-18); BUN/Creat Ratio 22.7 RATIO (10-20); Calcium,Total 9.3 mg/dL (8.5-10.1); Chloride 108 mmol/L (98-107); Creatinine, Serum 1.19 mg/dL (0.70-1.30); EST Glomerular Filtration Rate 64 mL/min (>60); Est Glom Filt Rate - Afr Amer 77 mL/min (>60); Estimated Creatinine Clearance 63.41 ml/min; Glucose 106 mg/dL (74-106); Sodium Level 136 mmol/L (136-145)
--- NOTE | 2021-11-03 07:26 | PN.HOSP_ITS ---
Subjective Subjective Patient seen and examined. He has no active complaints today and had an uneventful night. Review of systems is otherwise negative. He has remained hemodynamically stable. MRI of the foot showed osteomyelitis Objective Data Objective Data Vital Signs: Vital Signs Temp Pulse Resp BP Pulse Ox 98 F 80 16 124/65 H 96 11/03/21 05:17 11/03/21 05:17 11/03/21 05:17 11/03/21 05:17 11/03/21 05:17 Oxygen Delivery Method Room Air Weight: 247 lb 2.211 oz Body Mass Index (BMI) 32.7 Intake & Output: Intake and Output for Last 24 Hours 11/01/21 11/02/21 11/03/21 23:59 23:59 23:59 Intake Total 2068.25 / 2068. 369.75 / 369.75 Balance 2068. / 369.75 / 369.75 Lab / Micro Data Result Diagrams: 11/03/21 05:49 11/03/21 05:49 Labs: Laboratory Results - last 24 hr 11/03/21 05:49: WBC 12.8 H, RBC 4.98, Hgb 14.7, Hct 43.6, MCV 87.6, MCH 29.5, MCHC 33.7, RDW Std Deviation 47.6 H, RDW Coeff of Jay 14.7 H, Plt Count 220, MPV 9.3, Immature Gran % (Auto) 0.500, Neut % (Auto) 64.1, Lymph % (Auto) 21.5, [place] % (Auto) 9.1, Eos % (Auto) 4.2, Baso % (Auto) 0.6, Absolute Neuts (auto) 8.2 H, Absolute Lymphs (auto) 2.75, Nucleated RBC % 0 11/03/21 05:49: Sodium 136, Potassium 4.0, Chloride 108 H, Carbon Dioxide 24.0, Anion Gap 4 L, BUN 27 H, Creatinine 1.19, Estim Creat Clear Calc 63.41, Est GFR (MDRD) Af Amer 77, Est GFR (MDRD) Non-Af 64, BUN/Creatinine Ratio 22.7 H, Glucose 106, Calcium 9.3 Micro: Microbiology 11/01/21 23:40 Wound - Left Foot Gram Stain - Final Radiography Diagnostic Testing: Radiology Impression Lower Extremity MRI 11/02/21 00:10 IMPRESSION: Osteomyelitis of the second distal phalanx, and mild bone edema of the second middle phalanx, either reactive bone edema or early osteomyelitis. Arthropathy of the first and second tarsometatarsal articulations. Arthrosis of the sesamoids-first metatarsal articulations. Intermetatarsal neuroma of the second webspace. Fat replacement of the intrinsic muscles of the forefoot suggestive of peripheral neuropathy. No demonstrated soft tissue abscess. Electronically Signed: Clive Valdez MD at 11:02 EDT , Physical Exam Const alert, oriented x3, no apparent distress, healthy appearing and well nourished General Appearance: cooperative HEENT normocephalic, head/scalp atraumatic, hearing grossly normal bilaterally and moist oral mucous membranes Eyes PERRL, EOMs intact bilaterally and conjunctivae normal Eyes Narrative: No scleral icterus Neck no lymphadenopathy, supple, no JVD and no carotid bruits Resp normal respiratory effort, no retractions, no use of accessory muscles and clear to auscultation bilaterally Auscultation: Negative for crackles, rales, rhonchi or wheezes Cardio regular rate, regular rhythm, S1 normal heart sound, S2 normal heart sound, no murmurs, no rub, no gallops, no clicks and no JVD GI normal to inspection, nondistended, normoactive bowel sounds, soft to palpation, non-tender and non-distended; Negative for hepatosplenomegaly Extremity Extremity Narrative: lef foot wrapped in bandage Skin skin turgor normal, no jaundice, no petechiae and no mottling Skin Narrative: as under extremity Neuro oriented x3, CN's II-XII intact bilaterally, moves all extremities and no focal motor deficits Neuro Narrative: Bilateral lower extremity neuropathy Sensorium / Orientation: awake and alert Speech: speech normal Motor Exam: strength 5/5 throughout Psych affect normal Assessment & Plan Assessment/Plan (1) Cellulitis of left foot: PLAN: Plan #Ulceration and cellulitis of the left foot * on IV vancomycin and meropenem * podiatry on board * MRI of the left foot showed osteomyelitis of the second distal phalanx and mild bone edema of hte second middle phalanx, either reactive bone edema or early osteomyelitis * wound cultures pending * #CKD stage 3B: stable. Cr at baseline #Hypertension: on lisinopril and metoprolol #History of gout: on allopurinol and colchicine #DVT prophylaxis: lovenox Charges/Coding Visit Charges Inpatient E&M: 47578 Subs Hosp L2
--- NOTE | 2021-11-03 09:56 | WOUNDNOTE ---
Pt is going to surgery today. will leave dressing in place.
[2021-11-03] MEDS: 0.9% Normal Saline 1,000 ML 125 ML IV ×2 (10:08→18:40)
--- NOTE | 2021-11-03 12:26 | RAD_ITS ---
STUDY: INTRAOPERATIVE FLUOROSCOPY TECHNIQUE: The examination was performed with referring physician in attendance. Under fluoroscopic observation, fluoroscopic images were obtained. Radiologist was not present for the study. Radiologist did not perform the procedure. This dictation is for documentation of the radiation dosage only. There is no interpretation of the images. TOTAL NUMBER OF IMAGES: 1 COMPARISON: None RADIATION DOSE: 0.14 mGy FLUOROSCOPY TIME: 2 seconds REASON FOR EXAM: PAIN Male, 71 years old. FINDINGS: Amputation of the middle and distal second phalanx. RAD/Toe(s) Min 2 Views IMPRESSION: Fluoroscopic assistance images were obtained. Dictation for documentation purposes only. Electronically Signed: Roel Camacho MD at 18:27 EDT ,
--- NOTE | 2021-11-03 12:43 | PCM.PROGNOTE ---
Subjective Subjective patient seen this afternoon prior to scheduled surgery. denies pain. denies n/v/f/c. had mri and confirms osteomyelitis of middle and distal phalanx of 2nd toe. Objective Data Objective Data patient is alert and orientated x 3. he does not appear in any distress vascular: DP and Pt pulses are palpable to left foot CFT is less than 5 seconds. Skin temperature is warm to warm. + erythema is noted to left 2nd toe. DARON performed 08/09/21 1.01 left foot. TBI 0.51 Derm: there is ulceration to distal tuft of left 2nd toe with + serous drainage, + redness. m/s: hammertoe of left 2nd, 3rd and left 5th toe. amputation of left 4th toe. MRI : + marrow edema of left 2nd middle and distal phalanx. no abscess noted. Vital Signs: Vital Signs Temp Pulse Resp BP Pulse Ox 98.0 F 75 16 137/71 H 96 11/03/21 08:28 11/03/21 08:28 11/03/21 08:28 11/03/21 08:28 11/03/21 08:28 Oxygen Delivery Method Room Air Weight: 112.1 kg Body Mass Index (BMI) 32.5 Intake & Output: Intake and Output for Last 24 Hours 11/01/21 11/02/21 11/03/21 23:59 23:59 23:59 Intake Total 2068. / 2068. 369.75 / 369.75 Balance 2068. / 2068. 369.75 / 369.75 Lab / Micro Data Result Diagrams: 11/03/21 05:49 11/03/21 05:49 Labs: Laboratory Results - last 24 hr 11/03/21 05:49: WBC 12.8 H, RBC 4.98, Hgb 14.7, Hct 43.6, MCV 87.6, MCH 29.5, MCHC 33.7, RDW Std Deviation 47.6 H, RDW Coeff of Jay 14.7 H, Plt Count 220, MPV 9.3, Immature Gran % (Auto) 0.500, Neut % (Auto) 64.1, Lymph % (Auto) 21.5, [place] % (Auto) 9.1, Eos % (Auto) 4.2, Baso % (Auto) 0.6, Absolute Neuts (auto) 8.2 H, Absolute Lymphs (auto) 2.75, Nucleated RBC % 0 11/03/21 05:49: Sodium 136, Potassium 4.0, Chloride 108 H, Carbon Dioxide 24.0, Anion Gap 4 L, BUN 27 H, Creatinine 1.19, Estim Creat Clear Calc 63.41, Est GFR (MDRD) Af Amer 77, Est GFR (MDRD) Non-Af 64, BUN/Creatinine Ratio 22.7 H, Glucose 106, Calcium 9.3 Micro: Microbiology 11/01/21 23:40 Wound - Left Foot Gram Stain - Final Assessment & Plan Assessment/Plan (1) Hammertoe of left foot: (2) Cellulitis of left foot: (3) Ulcer of left foot: PLAN: Plan patient has infected ulceration of left 2nd toe. he has marrow changes of middle and distal phalanx consistent with osteomyelitis of distal phalanx and likley early osteomyelitis of left middle phalanx. Discussed options -with patient not limited partial syme amputation for partial 2nd toe amputation to total 2nd toe amputation. the mri does confirm osteomyelitis of distal phalanx and likely middle phalanx. patient desires procedure to try and get all the infection resected. With this being said, he also feels if he can save some of the toe that would be of benefit. for this reason, will plan to proceed with resection of middle and distal phalanx and resect head of proximal phalanx. If infection were to be present in proximal phalanx, he would either require more proximal amputation or treat with extended course of antibiotics. I reviewed pvr that was performed in july 2021. he does have small vessel disease. He is at risk of nonhealing. certainly with him having infection, it is necessary to proceed with surgery. he understands risk of nonhealing. if nonhealing were to occur, he may require more proximal amputation. I informed patient that if he does not pursue surgery, he could become septic and this certainly raises issues. I informed patient that he does have hammertoe of left 3rd and left 5th toe. having amputation of left 2nd toe does place him at risk of further pressure to left 3rd toe. It will be apparent that he needs to either use padding or have the left 3rd and/or 5th toe addressed with correction otherwise, he could be at risk of having problems here in future. we will not be addressing these today due to infection of 2nd toe. patient understands this. patient consents to proceed with partial 2nd toe amputation of left foot. pending appearance intra-op, will make decision to close primarily vs proceed with delayed closure. if primary closure can be achieved, with his small vessel diseease, he is likely to heal better. all r/b/a discussed. patient consents to proceed.
[2021-11-03] MEDS: Lidocaine 1% (50 ml mdv) 50 ML Vial (13:03)
--- NOTE | 2021-11-03 14:35 | RAD_ITS ---
STUDY: X-RAY LEFT FOOT, SECOND TOE REASON FOR EXAM: Male, 71 years old. Post-op partial 2nd toe amputation TECHNIQUE: 3 view(s) of the toe were obtained. COMPARISON: Comparison is made with prior examination done earlier today. FINDINGS: The patient status post amputation of the distal phalanx of the second toe with overlying postoperative soft tissue changes. The patient is also status post amputation of the proximal and distal phalanges of the fourth toe. There is evidence of a small periarticular lytic density in the head of the first metatarsal suggestive of possible gout. Degenerative changes of the first tarsal metatarsal joint. Soft tissue swelling. RAD/Toe(s) Min 2 Views IMPRESSION: Status post amputation of the distal joints of the second toe and the proximal and distal phalanges of the fourth toe. Electronically Signed: Eric Cleveland MD at 15:01 EDT ,
--- NOTE | 2021-11-03 14:42 | PCM.OPRPT ---
Report of Operation Date of Procedure: 11/03/21 Pre-Operative Diagnosis: osteomyelitis, left 2nd toe Post-Operative Diagnosis: osteomyelitis, left 2nd toe Surgery/Procedure Performed:: Incision and drainage of left 2nd toe Partial 2nd toe amputation, left 2nd toe Description of Surgical Findings:: + softening of distal and middle phalanx, left 2nd toe healthy appearance to left 2nd toe proximal phalanx no abscess good granular tissue following resection of distal and middle phalanx Surgeon: Jose Holman Type of Anesthesia: Local MAC Specimen's removed: distal phalanx left 2nd toe for pathology and micro proximal phalanx left 2nd toe for pathology and micro Drains: none Estimated Blood Loss (mL): 3 ml Description of Procedure: Patient is a pleasant 71 year old nondiabetic male with history of neuropathy and hammertoe deformity. He underwent amputation of left 4th toe back in july for underlying osteomyelitis. He healed the amputation nicely. He has semi reducible hammertoe of left 2nd and left 3rd toe that we had planned to proceed with flexor tenotomy several weeks ago to eliminate pressure on distal tuft of 2nd and 3rd toe. Patient was scheduled but had to cancel as he was scheduled to watch his grandkids. He developed an ulceration over the past few weeks. per , the ulceration was healing but over the past week, it grew larger and the toe began to swell. He presented to the emergency room this past Saturday and was subsequently admitted to the hospital. An xray was performed and there were no signs of plain film osteomyelitis. MRI was performed and there was marrow edema of the distal and middle phalanx of left 2nd toe. I discussed these findings with patient. In addition to the mri, he does have large ulceration to the distal tuft that does involve significant soft-tissue void. Given the mri findings of osteomyelitis of left 2nd middle and distal phalanx combined with soft-tissue defect, we discussed partial 2nd toe amputation to level of proximal phalanx vs complete 2nd toe amputation. This patient would like to salvage as much of his toe as possible and for this reason, he has elected to pursue partial 2nd toe amputation. It should be noted that this patient does have small vessel disease. in fact, he has tbi of 0.51 to the left foot. He did heal his 4th toe amputation without issues. I informed patient that given his small vessel disease, he is at risk of nonhealing and if this were to occur, he may require more proximal amputation. He does have normal DARON. I informed patient that given the infection, I do feel that amputation at this time is necessary to help prevent the progression of infection I have proposed partial 2nd to complete 2nd toe amputation on this patient. I have discussed risks of the procedure not limited to infection, pain, swelling, bleeding, slow wound healing, need for more proximal amputation, nonhealing of incision, failure to eliminate the entire infection, need for antibiotics following amputation. Patient was also informed of risk of transfer lesions to the 3rd or 5th toe. due to infection, I will not be addressing any elective surgery on the 3rd or 5th toe at this time but it will likely be of great benefit if patient addresses these in the near future once he heals his 2nd toe. ALl r/b/a were discussed. patient consents to partial 2nd toe amputation. following the procedure, he will be permitted to ambulate to his left heel. I will have patient use xarelto as he has history of dvt following prior surgery in the past. I will make primary aware of this. all questions answered. patient consents to partial 2nd toe amputation. Patient was transferred to the operating room and placed on the operating room table in the supine position. he was identified by name and procedure. he was placed under sedation and the left foot was prepped and draped in the usual aseptic technique. A tourniquet was applied but never inflated time out was performed making note of the procedure and personal involved. Attention was then directed to the left 2nd toe. Using c- arm, a racket type incision was planned and performed to the left 2nd toe. I dissected down thru subcutaneous tissue. All neurovascular structures were retracted. The 2nd toe was disarticulated at the proximal interphalangeal joint. The middle and distal phalanx was passed to the back table and sectioned for pathology and micro. The middle and distal phalanx was soft, nonviable and concerning for underlying bone infection. All nonviable tissue of the 2nd toe was then debrided. no purulence or abscess was noted. following debridement of nonviable tissue, the left 2nd toe was irrigated with saline using a pulse lavage. Following pulse lavage, clean instruments and gloves were exchanges. The head of the proximal phalanx was then resected with sagital saw. the specimen was hard and was collected, sectioned and sent for pathology and micro. Given the appearance of wound bed following debridement was granular, healthy without drainage, I felt it was appropriate to close this wound primarily to allow healing especially in a patient with small vessel disase. the surgical incision was repaired without tension using 3-0 nylon. once the amputation was complete and counts were correct, a well padded dressing consisting of betadine soaked adaptic, 4x4 guaze, amanda and justin was applied to left foot. intra-op xrays showed appropriate findings s/p partial 2nd toe amputation. Patient will transfer to pacu. once he is stable, he will be permitted to transfer back to the floor. will continue with iv antibiotics. pending appearance of foot this weekend, may discuss discharge. he will be given oral antibiotic at discharge.. given history of dvt, would recommend prophylaxis with either lovenox or xarelto. will consult PT for gait training however, he is likely fine already as he just recently had surgery on left 4th toe and was fine.
[2021-11-03] MEDS: Allopurinol 100 MG Tablet PO (15:13)
[2021-11-03] MEDS: Multivitamins,Therapeutic Tablet 1 TABLET PO (15:13)
[2021-11-03] MEDS: Colchicine 0.6 MG TABLET PO (15:13)
[2021-11-03] MEDS: Lisinopril 10 MG Tablet PO (15:13)
[2021-11-04] MEDS: 0.9% Normal Saline 1,000 ML 125 ML IV ×3 (01:33→20:21)
--- NOTE | 2021-11-04 01:53 | PCM.RX.CS ---
Consult Pharmacy has been consulted to manage selected antiobiotic: Vancomycin Type of Consult: Follow-up Labs: Sodium 136 mmol/L (136-145) 11/03/21 05:49 Potassium 4.0 mmol/L (3.5-5.1) 11/03/21 05:49 Chloride 108 mmol/L (98-107) H 11/03/21 05:49 Carbon Dioxide 24.0 mmol/L (21.0-32.0) 11/03/21 05:49 Anion Gap 4 (5-15) L 11/03/21 05:49 BUN 27 mg/dL (7-18) H 11/03/21 05:49 Creatinine 1.19 mg/dL (0.70-1.30) 11/03/21 05:49 Est GFR (MDRD) Af Amer 77 mL/min (>60) 11/03/21 05:49 Est GFR (MDRD) Non-Af 64 mL/min (>60) 11/03/21 05:49 BUN/Creatinine Ratio 22.7 RATIO (10-20) H 11/03/21 05:49 Glucose 106 mg/dL (74-106) 11/03/21 05:49 Vancomycin Trough 20.0 ug/mL (5.0-15.0) H 11/04/21 00:52 Microbiology: Microbiology 11/01/21 23:40 Wound - Left Foot Gram Stain - Final Goal Trough: 10-15 mcg/mL Pharmacy Plan for Drug Dosing: Pharmacy Service will continue to monitor and adjust dosing as required. TROUGH 20.0 AT 9.5 HRS. HOLD DOSE AND DRAW RANDOM LEVEL IN 12 HOURS Follow-Up Labs: Trough Vancomycin Labs to be done on [date and time ordered]: 11/04 @ 1300
[2021-11-04 02:41] VITALS: BP 118/68; PULSE 82; RESP 16; TEMP 36.8; O2SAT 99
[2021-11-04 06:30] LABS: Absolute Lymphocyte Count 3.09 X10^3/uL (0.83-4.51); Absolute Neutrophil Count 7.2 X10^3/uL (2.0-7.7); Basophil# 0.06 X10^3/uL; Basophil% 0.5 % (0-1); Eosinophil# 0.47 X10^3/uL; Eosinophils% 3.9 % (0-5); Hematocrit 40.8 % (40-54); Hemoglobin 13.8 g/dL (13.0-16.5); Lymphocyte # 3.09 X10^3/ul (0.83-4.51); Lymphocyte % 25.5 % (19-41); Mean Corp Hgb Conc 33.8 g/dL (32-36); Mean Corpuscular Hgb 29.7 pg (27.0-32.0); Mean Corpuscular Volume 87.9 fL (80-94); Monocyte# 1.29 X10^3/uL; Monocyte% 10.6 % (0-10); NRBC Flagged by Analyzer 0 % (0-5); Neutrophil # 7.17 X10^3/uL (2.7-7.7); Neutrophil % 59.1 % (47-70); Platelet Count 194 K/mm3 (150-450); RBC Distribution Width CV 14.7 % (11.6-14.6); RBC Distribution Width SD 47.3 fl (35.1-43.9); Red Blood Count 4.64 M/mm3 (4.6-6.2); White Blood Count 12.1 K/mm3 (4.4-11.0)
[2021-11-04 06:58] LABS: Anion Gap 5 (5-15); BUN 27 mg/dL (7-18); BUN/Creat Ratio 23.5 RATIO (10-20); Calcium,Total 8.9 mg/dL (8.5-10.1); Chloride 108 mmol/L (98-107); Creatinine, Serum 1.15 mg/dL (0.70-1.30); EST Glomerular Filtration Rate 66 mL/min (>60); Est Glom Filt Rate - Afr Amer 80 mL/min (>60); Estimated Creatinine Clearance 65.62 ml/min; Glucose 102 mg/dL (74-106); Potassium 4.2 mmol/L (3.5-5.1); Sodium Level 137 mmol/L (136-145)
[2021-11-04 07:39] VITALS: O2SAT 95
--- NOTE | 2021-11-04 09:59 | PN.HOSP_ITS ---
Subjective Subjective Patient seen and examined. was by his bedside. He had no active complaints and had an uneventful night. Review of systems is otherwise negative. Today is POD 1 of incision and drainage of the left second toe and resection of distal and mid second phalanx. Objective Data Objective Data Vital Signs: Vital Signs Temp Pulse Resp BP Pulse Ox 98.2 F 82 16 118/68 95 11/04/21 02:41 11/04/21 02:41 11/04/21 02:41 11/04/21 02:41 11/04/21 07:39 Oxygen Delivery Method Room Air Weight: 247 lb 2.211 oz Body Mass Index (BMI) 32.5 Intake & Output: Intake and Output for Last 24 Hours 11/02/21 11/03/21 11/04/21 23:59 23:59 23:59 Intake Total / / 1591.25 / 1591.25 Balance / 1591.25 / 1591.25 Lab / Micro Data Result Diagrams: 11/04/21 05:43 11/04/21 05:43 Labs: Laboratory Results - last 24 hr 11/04/21 00:52: Vancomycin Trough 20.0 H 11/04/21 05:43: WBC 12.1 H, RBC 4.64, Hgb 13.8, Hct 40.8, MCV 87.9, MCH 29.7, MCHC 33.8, RDW Std Deviation 47.3 H, RDW Coeff of Jay 14.7 H, Plt Count 194, MPV 9.0, Immature Gran % (Auto) 0.400, Neut % (Auto) 59.1, Lymph % (Auto) 25.5, [place] % (Auto) 10.6 H, Eos % (Auto) 3.9, Baso % (Auto) 0.5, Absolute Neuts (auto) 7.2, Absolute Lymphs (auto) 3.09, Nucleated RBC % 0 11/04/21 05:43: Sodium 137, Potassium 4.2, Chloride 108 H, Carbon Dioxide 24.0, Anion Gap 5, BUN 27 H, Creatinine 1.15, Estim Creat Clear Calc 65.62, Est GFR (MDRD) Af Amer 80, Est GFR (MDRD) Non-Af 66, BUN/Creatinine Ratio 23.5 H, Glucose 102, Calcium 8.9 Micro: Microbiology 11/01/21 21:32 Blood Culture (Wb) - Anticubital Left Blood Culture - Preliminary No growth in 48 hours. 11/01/21 21:42 Blood Culture (Wb) - Left Hand Blood Culture - Preliminary No growth in 48 hours. 11/01/21 23:40 Wound - Left Foot Gram Stain - Final 11/01/21 23:40 Wound - Left Foot Wound Culture - Preliminary Coag Negative Staph Alpha Hemolytic Streptococcus Gram negative gregorio 11/03/21 13:23 Tissue - 2nd Toe Wound Culture - Preliminary No growth-Final to follow 11/03/21 13:20 Tissue - 2nd Toe Wound Culture - Preliminary Gram positive organism Radiography Diagnostic Testing: Radiology Impression Toe X-Ray 11/03/21 12:26 IMPRESSION: Fluoroscopic assistance images were obtained. Dictation for documentation purposes only. Electronically Signed: Roel Camacho MD at 18:27 EDT , Toe X-Ray 11/03/21 14:35 IMPRESSION: Status post amputation of the distal joints of the second toe and the proximal and distal phalanges of the fourth toe. Electronically Signed: Eric Cleveland MD at 15:01 EDT , Physical Exam Const alert, oriented x3, no apparent distress, average body habitus, healthy appearing and well nourished General Appearance: cooperative HEENT normocephalic, head/scalp atraumatic, hearing grossly normal bilaterally and moist oral mucous membranes Eyes PERRL, EOMs intact bilaterally and conjunctivae normal Neck no lymphadenopathy, supple, no JVD and no carotid bruits Resp normal respiratory effort, no retractions, no use of accessory muscles and clear to auscultation bilaterally Auscultation: Negative for crackles, rales, rhonchi or wheezes Cardio regular rate, regular rhythm, S1 normal heart sound, S2 normal heart sound, no murmurs, no rub, no gallops, no clicks and no JVD GI normal to inspection, nondistended, normoactive bowel sounds, soft to palpation, non-tender and non-distended; Negative for hepatosplenomegaly Extremity Extremity Narrative: lef foot wrapped in bandage Skin skin turgor normal, no jaundice, no petechiae and no mottling Skin Narrative: as under extremity Neuro oriented x3, CN's II-XII intact bilaterally, moves all extremities and no focal motor deficits Neuro Narrative: Bilateral lower extremity neuropathy Sensorium / Orientation: awake and alert Speech: speech normal Motor Exam: strength 5/5 throughout Psych affect normal Assessment & Plan Assessment/Plan (1) Cellulitis of left foot: PLAN: Plan #osteemyelitis of the left foot * on IV vancomycin and meropenem * podiatry on board * is s/p ncision and drainage as well as partial amputation of left second toe. * MRI of the left foot showed osteomyelitis of the second distal phalanx and mild bone edema of hte second middle phalanx, either reactive bone edema or early osteomyelitis * wound and bone cultures pending * podiatry on board * #Peripheral artery disease * per podiatry, he has small vessel disease. THis puts him at risk of nonhealing. * #CKD stage 3B: stable. Cr at baseline #Hypertension: on lisinopril and metoprolol #History of gout: on allopurinol and colchicine #DVT prophylaxis: lovenox Charges/Coding Visit Charges Inpatient E&M: 28888 Subs Hosp L2
--- NOTE | 2021-11-04 10:27 | PN_ITS ---
Subjective Subjective patient is seen this morning s/p partial 2nd toe amputation. patient denies pain. patient denies n/v/f/c. patient is tolerating antibiotics nicely. Objective Data Objective Data patient is alert and orientated x 3. he does not appear in any distress surgical dressing is intact to left foot without strike thru bleeding. Dressing was removed today. Surgical incision is nicely approximated without tension or signs of dehiscence. there is no drainage or active bleeding. there is no redness or signs of local skin infection. there is no evidence of any irritations of skin from dressing. no calf pain present. no open wounds present to right foot. Vital Signs: Vital Signs Temp Pulse Resp BP Pulse Ox 98.2 F 82 16 118/68 95 11/04/21 02:41 11/04/21 02:41 11/04/21 02:41 11/04/21 02:41 11/04/21 07:39 Oxygen Delivery Method Room Air Weight: 112.1 kg Body Mass Index (BMI) 32.5 Intake & Output: Intake and Output for Last 24 Hours 11/02/21 11/03/21 11/04/21 23:59 23:59 23:59 Intake Total 2068. / / 1591.25 / 1591.25 Balance 2068. / / 1591.25 / 1591.25 Lab / Micro Data Result Diagrams: 11/04/21 05:43 11/04/21 05:43 Labs: Laboratory Results - last 24 hr 11/04/21 00:52: Vancomycin Trough 20.0 H 11/04/21 05:43: WBC 12.1 H, RBC 4.64, Hgb 13.8, Hct 40.8, MCV 87.9, MCH 29.7, MCHC 33.8, RDW Std Deviation 47.3 H, RDW Coeff of Jay 14.7 H, Plt Count 194, MPV 9.0, Immature Gran % (Auto) 0.400, Neut % (Auto) 59.1, Lymph % (Auto) 25.5, [place] % (Auto) 10.6 H, Eos % (Auto) 3.9, Baso % (Auto) 0.5, Absolute Neuts (auto) 7.2, Absolute Lymphs (auto) 3.09, Nucleated RBC % 0 11/04/21 05:43: Sodium 137, Potassium 4.2, Chloride 108 H, Carbon Dioxide 24.0, Anion Gap 5, BUN 27 H, Creatinine 1.15, Estim Creat Clear Calc 65.62, Est GFR (MDRD) Af Amer 80, Est GFR (MDRD) Non-Af 66, BUN/Creatinine Ratio 23.5 H, Glucose 102, Calcium 8.9 Micro: Microbiology 11/01/21 21:32 Blood Culture (Wb) - Anticubital Left Blood Culture - Preliminary No growth in 48 hours. 11/01/21 21:42 Blood Culture (Wb) - Left Hand Blood Culture - Preliminary No growth in 48 hours. 11/01/21 23:40 Wound - Left Foot Gram Stain - Final 11/01/21 23:40 Wound - Left Foot Wound Culture - Preliminary Coag Negative Staph Alpha Hemolytic Streptococcus Gram negative gregorio 11/03/21 13:23 Tissue - 2nd Toe Wound Culture - Preliminary No growth-Final to follow 11/03/21 13:20 Tissue - 2nd Toe Wound Culture - Preliminary Gram positive organism Radiography Diagnostic Testing: Radiology Impression Toe X-Ray 11/03/21 12:26 IMPRESSION: Fluoroscopic assistance images were obtained. Dictation for documentation purposes only. Electronically Signed: Roel Camacho MD at 18:27 EDT Reading Location ID and State: [facility] / [place] , Service support , Toe X-Ray 11/03/21 14:35 IMPRESSION: Status post amputation of the distal joints of the second toe and the proximal and distal phalanges of the fourth toe. Electronically Signed: Eric Cleveland MD at 15:01 EDT , Assessment & Plan Assessment/Plan (1) Cellulitis of left foot: PLAN: patient is s/p partial 2nd toe amputation of left foot Dressing removed today and the foot appears stable without redness, drainage or local signs of infection.new dressing applied to left foot consisting of betadine, adaptic to incision, guaze between toes and top of foot. ABD was applied to anterior and posterior ankle to prevent rubbing. Will have patient perform dressing changes every 2 days at home. I reviewed cultures obtained intra-op and wound cultures obtained on admission. he does have coag negative staph and strep growing from wound culture and preliminary culture of 2nd toe distal phalanx has gram positive organism growing. Proximal phalanx (clean margins) shows no growth. I would have him continue with IV antibiotics while hospitalized and upon discharge, would rec ommend po antibiotics to cover staph/strep. I suspect keflex vs levaquin would be options (patient is allergic to pcn). Patient is permitted to ambulate on left heel. I would recommend he use walker to help reduce pressure to his left foot. being he is neuorpathic, he will not know how much pressure he is applying to his foot. applying weight to his heel is fine but I just don't want him overdoing it because if he is active, his foot will be at risk of swelling which could slow the healing of incision. upon discharge, I would recommend prophylaxis with either xarelto or lovenox. patient has history of infected ulceratoin in 2015 requiring boot immobilization and he subsequently developed DVT. For this reason, i do feel prophylaxis is necessary. I spoke with hospitalist about this yesterday. Would have therapy evaluate patient to assure he is stable with walker and heel weightbearing. I would keep patient hospitalized over weekend. possible discharge early next week. (2) Ulcer of left foot: PLAN: as above.
[2021-11-04 10:35] VITALS: BP 126/67; PULSE 72; RESP 16; TEMP 36.8; O2SAT 98
[2021-11-04] MEDS: Glucerna Shake 120 ML LIQUID PO ×2 (10:41→15:05)
[2021-11-04] MEDS: Multivitamins,Therapeutic Tablet 1 TABLET PO (10:42)
[2021-11-04] MEDS: Lisinopril 10 MG Tablet PO (10:42)
[2021-11-04] MEDS: Allopurinol 100 MG Tablet PO (10:42)
[2021-11-04] MEDS: Enoxaparin 40 MG/0.4 ML Syringe SC (10:46)
[2021-11-04 13:22] VITALS: BP 148/69; PULSE 79; RESP 16; TEMP 36.5; O2SAT 99
--- NOTE | 2021-11-04 17:05 | PCM.RX.CS ---
Consult Pharmacy has been consulted to manage selected antiobiotic: Vancomycin Type of Consult: Follow-up Suspected Infection: Skin/Soft tissue Labs: Sodium 137 mmol/L (136-145) 11/04/21 05:43 Potassium 4.2 mmol/L (3.5-5.1) 11/04/21 05:43 Chloride 108 mmol/L (98-107) H 11/04/21 05:43 Carbon Dioxide 24.0 mmol/L (21.0-32.0) 11/04/21 05:43 Anion Gap 5 (5-15) 11/04/21 05:43 BUN 27 mg/dL (7-18) H 11/04/21 05:43 Creatinine 1.15 mg/dL (0.70-1.30) 11/04/21 05:43 Est GFR (MDRD) Af Amer 80 mL/min (>60) 11/04/21 05:43 Est GFR (MDRD) Non-Af 66 mL/min (>60) 11/04/21 05:43 BUN/Creatinine Ratio 23.5 RATIO (10-20) H 11/04/21 05:43 Glucose 102 mg/dL (74-106) 11/04/21 05:43 Vancomycin Trough 20.0 ug/mL (5.0-15.0) H 11/04/21 00:52 Random Vancomycin 11.0 ug/mL (0.0-15.0) 11/04/21 12:38 Microbiology: Microbiology 11/03/21 13:23 Tissue - 2nd Toe Gram Stain - Final 11/03/21 13:23 Tissue - 2nd Toe Wound Culture - Preliminary No growth-Final to follow 11/03/21 13:20 Tissue - 2nd Toe Gram Stain - Final 11/03/21 13:20 Tissue - 2nd Toe Wound Culture - Preliminary Gram positive organism 11/01/21 21:32 Blood Culture (Wb) - Anticubital Left Blood Culture - Preliminary No growth in 48 hours. 11/01/21 21:42 Blood Culture (Wb) - Left Hand Blood Culture - Preliminary No growth in 48 hours. 11/01/21 23:40 Wound - Left Foot Gram Stain - Final 11/01/21 23:40 Wound - Left Foot Wound Culture - Preliminary Coag Negative Staph Alpha Hemolytic Streptococcus Gram negative gregorio Goal Trough: 15-20 mcg/mL Pharmacy Plan for Drug Dosing: VANCOMYCIN LEVEL RECEIVED Current Vancomycin Dose: ON HOLD- was on 1g IV Q12hr previously Number of Doses Received: ON HOLD Vancomycin Level: 11 Hours Since Last Dose: ~22HR Renal Function: 1.05 Renal Function Trend: stable Lab/Micro: Cx growing G(+) organism, no identification yet Vancomycin Plan/Comments: The patient's previous vancomycin dose was placed on hold d/t a trough of 20 (9.5hr from last dose). Trough re-checked and came back with a value of 11. The trough earlier today was drawn only 9.5hr from last administered dose due to surgery, so trough likely would have been <20. Current trough goal is 10-15. Discussed case with attending MD today, after discussing it was determined that the trough goal will be adjusted to 15-20 given severity/extent of infection. With this in mind, will re-start patient on 1g IV Q12hr given the trough was likely therapeutic if trough wasn't drawn so close to last administered dose. Pending Level: 11/06/21 @0430, prior to 4th dose of resumed regimen Pharmacy Service will continue to monitor and adjust dosing as required.
[2021-11-04] MEDS: Vancomycin IV 1,000 MG/200 ML BAG 200 MG IV (17:51)
[2021-11-04 19:12] VITALS: BP 143/59; PULSE 81; RESP 18; TEMP 37.3; O2SAT 99
[2021-11-04 21:59] VITALS: BP 138/73; PULSE 79; RESP 18; TEMP 37.3; O2SAT 95
[2021-11-05 03:15] VITALS: BP 139/73; PULSE 79; RESP 18; TEMP 37.1; O2SAT 98
[2021-11-05] MEDS: Vancomycin IV 1,000 MG/200 ML BAG 200 MG IV (04:01)
[2021-11-05] MEDS: 0.9% Normal Saline 1,000 ML 125 ML IV (04:01)
[2021-11-05 05:55] LABS: Basophil# 0.05 X10^3/uL; Basophil% 0.5 % (0-1); Eosinophil# 0.45 X10^3/uL; Eosinophils% 4.3 % (0-5); Hematocrit 39.4 % (40-54); Lymphocyte % 27.5 % (19-41); Mean Corpuscular Hgb 29.7 pg (27.0-32.0); Mean Corpuscular Volume 90.2 fL (80-94); Mean Platelet Vol. 9.5 fl (6.2-12.0); Monocyte# 1.09 X10^3/uL; Monocyte% 10.3 % (0-10); NRBC Flagged by Analyzer 0 % (0-5); Neutrophil % 56.9 % (47-70); Platelet Count 195 K/mm3 (150-450); RBC Distribution Width CV 14.5 % (11.6-14.6); RBC Distribution Width SD 47.9 fl (35.1-43.9); Red Blood Count 4.37 M/mm3 (4.6-6.2); White Blood Count 10.5 K/mm3 (4.4-11.0)
[2021-11-05 06:23] LABS: Anion Gap 6 (5-15); BUN 31 mg/dL (7-18); BUN/Creat Ratio 28.4 RATIO (10-20); Chloride 111 mmol/L (98-107); Creatinine, Serum 1.09 mg/dL (0.70-1.30); EST Glomerular Filtration Rate 71 mL/min (>60); Est Glom Filt Rate - Afr Amer 86 mL/min (>60); Estimated Creatinine Clearance 69.23 ml/min; Glucose 117 mg/dL (74-106); Sodium Level 140 mmol/L (136-145)
--- NOTE | 2021-11-05 07:51 | PCM.PN.HOSP ---
Subjective Subjective Patient seen and examined. He had no complaints today and had an uneventful night. REview of systems otherwise negative. Podiatry wants him to stay over the weekend. Per discussion with podiatry, Objective Data Objective Data Vital Signs: Vital Signs Temp Pulse Resp BP Pulse Ox 98.7 F 79 18 139/73 H 98 11/05/21 03:15 11/05/21 03:15 11/05/21 03:15 11/05/21 03:15 11/05/21 03:15 Oxygen Delivery Method Room Air Weight: 247 lb 2.211 oz Body Mass Index (BMI) 32.5 Intake & Output: Intake and Output for Last 24 Hours 11/03/21 11/04/21 11/05/21 23:59 23:59 23:59 Intake Total 4040.42 / 4280.42 1578.33 / 1578.33 Balance 4040.42 / 4280.42 1578.33 / 1578.33 Lab / Micro Data Result Diagrams: 11/05/21 04:47 11/05/21 04:47 Labs: Laboratory Results - last 24 hr 11/04/21 12:38: Random Vancomycin 11.0 11/05/21 04:47: WBC 10.5, RBC 4.37 L, Hgb 13.0, Hct 39.4 L, MCV 90.2, MCH 29.7, MCHC 33.0, RDW Std Deviation 47.9 H, RDW Coeff of Jay 14.5, Plt Count 195, MPV 9.5, Immature Gran % (Auto) 0.500, Neut % (Auto) 56.9, Lymph % (Auto) 27.5, [place] % (Auto) 10.3 H, Eos % (Auto) 4.3, Baso % (Auto) 0.5, Absolute Neuts (auto) 6.0, Absolute Lymphs (auto) 2.90, Nucleated RBC % 0 11/05/21 04:47: Sodium 140, Potassium 4.0, Chloride 111 H, Carbon Dioxide 23.0, Anion Gap 6, BUN 31 H, Creatinine 1.09, Estim Creat Clear Calc 69.23, Est GFR (MDRD) Af Amer 86, Est GFR (MDRD) Non-Af 71, BUN/Creatinine Ratio 28.4 H, Glucose 117 H, Calcium 9.0 Micro: Microbiology 11/01/21 23:40 Wound - Left Foot Gram Stain - Final 11/01/21 23:40 Wound - Left Foot Wound Culture - Preliminary Staphylococcus epidermidis Streptococcus mitis/ oralis Gram negative gregorio 11/03/21 13:23 Tissue - 2nd Toe Gram Stain - Final 11/03/21 13:23 Tissue - 2nd Toe Wound Culture - Preliminary No growth-Final to follow 11/03/21 13:20 Tissue - 2nd Toe Gram Stain - Final 11/03/21 13:20 Tissue - 2nd Toe Wound Culture - Preliminary Gram positive organism 11/01/21 21:32 Blood Culture (Wb) - Anticubital Left Blood Culture - Preliminary No growth in 48 hours. 11/01/21 21:42 Blood Culture (Wb) - Left Hand Blood Culture - Preliminary No growth in 48 hours.
[2021-11-05 07:55] VITALS: BP 146/75; PULSE 73; RESP 16; TEMP 36.9; O2SAT 95
--- NOTE | 2021-11-05 07:56 | PN_ITS ---
Subjective Subjective Patient is seen this morning, post-op day #2. he denies any pain in his left foot. He denies n/v/f/c. He feels really well. He would like to go home today if possible. Objective Data Objective Data Patient is alert and orientated x 3. He does not appear in any distress. Vascular: DP and PT pulses are palpable to left foot. CFT is less than 5 seconds . Brisk CFT is noted to left 2nd toe amputation site. No necrotic changes are noted to left 2nd toe amputation site. Good color is noted to left foot without erythema. Minimal swelling is noted to left foot. Derm: The surgical incision to left 2nd toe amputation is approximated nicely without tension. Color of incision appears normal. No necrotic changes are noted. No signs of infection. Prior redness of the left foot is now resolved. M/s: no calf pain noted. Vital Signs: Vital Signs Temp Pulse Resp BP Pulse Ox 98.7 F 79 18 139/73 H 98 11/05/21 03:15 11/05/21 03:15 11/05/21 03:15 11/05/21 03:15 11/05/21 03:15 Oxygen Delivery Method Room Air Weight: 112.1 kg Body Mass Index (BMI) 32.5 Intake & Output: Intake and Output for Last 24 Hours 11/03/21 11/04/21 11/05/21 23:59 23:59 23:59 Intake Total 4040.42 / 4280.42 1578.33 / 1578.33 Balance 4040.42 / 4280.42 1578.33 / 1578.33 Lab / Micro Data Result Diagrams: 11/05/21 04:47 11/05/21 04:47 Labs: Laboratory Results - last 24 hr 11/04/21 12:38: Random Vancomycin 11.0 11/05/21 04:47: WBC 10.5, RBC 4.37 L, Hgb 13.0, Hct 39.4 L, MCV 90.2, MCH 29.7, MCHC 33.0, RDW Std Deviation 47.9 H, RDW Coeff of Jay 14.5, Plt Count 195, MPV 9.5, Immature Gran % (Auto) 0.500, Neut % (Auto) 56.9, Lymph % (Auto) 27.5, [place] % (Auto) 10.3 H, Eos % (Auto) 4.3, Baso % (Auto) 0.5, Absolute Neuts (auto) 6.0, Absolute Lymphs (auto) 2.90, Nucleated RBC % 0 11/05/21 04:47: Sodium 140, Potassium 4.0, Chloride 111 H, Carbon Dioxide 23.0, Anion Gap 6, BUN 31 H, Creatinine 1.09, Estim Creat Clear Calc 69.23, Est GFR (MDRD) Af Amer 86, Est GFR (MDRD) Non-Af 71, BUN/Creatinine Ratio 28.4 H, Glucose 117 H, Calcium 9.0 Micro: Microbiology 11/01/21 23:40 Wound - Left Foot Gram Stain - Final 11/01/21 23:40 Wound - Left Foot Wound Culture - Preliminary Staphylococcus epidermidis Streptococcus mitis/ oralis Gram negative gregorio 11/03/21 13:23 Tissue - 2nd Toe Gram Stain - Final 11/03/21 13:23 Tissue - 2nd Toe Wound Culture - Preliminary No growth-Final to follow 11/03/21 13:20 Tissue - 2nd Toe Gram Stain - Final 11/03/21 13:20 Tissue - 2nd Toe Wound Culture - Preliminary Gram positive organism 11/01/21 21:32 Blood Culture (Wb) - Anticubital Left Blood Culture - Preliminary No growth in 48 hours. 11/01/21 21:42 Blood Culture (Wb) - Left Hand Blood Culture - Preliminary No growth in 48 hours. 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 Wound culture from the ER show staph epi and strep. Bone culture of distal phalanx is showing gram positive organism. Bone culture of proximal phalanx has no growth. He is on IV antibiotics. He would like to go home today if possible. On exam, his toe appears stable. If patient desires to go home today, I will allow patient to go home provided he go home and rest his foot. This meaing, I want him to go home, elevate his foot as much as possible with his leg above the level of his heart. I want him to ambulate in surgical shoe with weightbearing applied to his left heel. I will have patient perform dressing changes every 2 days. for dressing changes he will do the followin. Betadine to incision followed by adaptic to incision 2. guaze between toes to prevent rubbing. guaze on top of his foot and abd around ankle to prevent rubbing. 3. Lian followed by justin Patient cultures are still pending. I am optimistic based on bone cultures that all infection has been surgically resected. If patient desires to go home, I will be fine with that. I would want oral antibiotic prescribed x 1 week to cover soft-tissue infection. He probably would be fine to go home on keflex 500 mg tid. the addition of cipro 500 mg BID could help with any gram negative bacteria. Case will be discussed with ID to make sure he is on appropriate antibiotic at discharge. currently he is having no pain and has not required any medication. he can take tylenol as needed. 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 for this reason, i would recommend prophylaxis with either xarelto or lovenox. I will have my nurses contact patient tomorrow to be seen later this week. he is instructed to walk with surgical shoe at home and place weight on his left heel. use of walker could help to minimize weight to his foot. he has been seen by therapy. (2) Ulcer of left foot: PLAN: as above
--- NOTE | 2021-11-05 08:05 | DCINST_ITS ---
Discharge Instructions Diet Discharge Diet: No restrictions Activity Discharge Activity: May Shower (Keep left foot clean and dry. do not get wet. ) Weight Bearing Status: Partial weight bearing (weight to left heel for transfer only. use surgical shoe. ) Keep extremity elevated above heart level: Operative Extremity Dressing / Incision Call your doctor if your incision/area has: Continuous Slow Oozing, Sudden Increased Bleeding, Increased Redness and Foul Smelling Discharge Call your doctor if you observe: Fever of 101 or Higher, Coldness, Increased Pain and Change in Color Change Dressing in: 2 days (apply betadine to incision followed by nonadhesive guaze (adaptic) followed by 4x4 guaze between the toes and abd around the ankle. secure with amanda wrap and justin bandage) Cleanse incision/area with: Do not get Incision Wet Follow Up Care Please Follow Up With: Jose Holman DPM When: this week. my nurses will call you. Test Results: Test results from this visit will be discussed in further detail at your follow- up appointment, if applicable. Discharge Plan Admission Admit Date/Time: 11/02/21 00:05 Attending Provider: Loreto Fish Primary Care Provider: Karla Ryan Consulting Providers: Jose Holman ; Katie Rodriguez Discharge Orders/Prescriptions Prescriptions: No Action multivitamin [Daily Multiple] 1 EACH tablet 1 tab PO DAILY Label Comments: supplement allopurinol 100 mg tablet 100 tab PO DAILY Label Comments: TAKE 3 TABLETS BY MOUTH ONCE DAILY lisinopril 10 mg tablet 10 tab PO DAILY Label Comments: TAKE 1 TABLET BY MOUTH ONCE DAILY colchicine 0.6 mg tablet 1 tab PO MOWEFR Label Comments: TAKE ONE TABLET BY MOUTH ON SATURDAY, SATURDAY AND SATURDAY DIRECTED Referrals / Follow Up: Karla Ryan MD [Primary Care Provider] -
[2021-11-05] MEDS: Multivitamins,Therapeutic Tablet 1 TABLET PO (08:06)
[2021-11-05] MEDS: Glucerna Shake 120 ML LIQUID PO (08:08)
--- NOTE | 2021-11-05 10:40 | PCM.DC.SUM ---
Providers Date of Admission: 11/02/21 Date of Discharge: 11/05/21 Primary Care Physician: Dr. 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 Routine Comment: Consult: Podiatry Routine Consulting Provider: Jose Holman Reason for Consult: L Foot cellulitis EMERGENT Consult: No MD Notified: Yes Date Notified: 11/02/21 Time Notified: 00:08 Method of Notification: ED Physician Initiated Reason For Visit: LEFT FOOT INFECTION Diagnosis Discharge Diagnosis (1) Cellulitis of left foot: Status: Acute Code(s): L03.116 - Cellulitis of left lower limb (2) Ulcer of left foot: Status: Acute Code(s): L97.529 - Non-pressure chronic ulcer of other part of left foot with unspecified severity Medications at Discharge Home Medications multivitamin (Daily Multiple) 1 tab PO DAILY VITAMIN 01/14/15 allopurinol 100 mg tablet 100 tab PO DAILY GOUT 11/02/21 colchicine 0.6 mg tablet 1 tab PO MOWEFR GOUT 11/02/21 lisinopril 10 mg tablet 10 tab PO DAILY BP 11/02/21 levofloxacin 500 mg tablet 500 mg PO DAILY #7 tabs 11/05/21 Hospital Course Operations - (I&D and resection of left 2nd toe distal and mid phalanx) Procedures None Summary of Care Provided Minutes Spent on Discharge: 45 Hospital Course: Patient is a 72-year-old male with a past medical history as outlined was admitted through the ED on 11/01/2021 with a complaint of erythema and swelling of the second digit of his left foot. 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 He had been following up with podiatry for a callus on the base of his second and third toe that had been watched closely and had been shaved off but in the 24 hours prior to admission he had increased drainage, redness and erythema. He had not had significant pain because he had neuropathy at baseline. He also developed lymphangitic streaking up to the medial ankle. On admission ESR and CRP were elevated x-ray of the foot done was negative for any evidence of osteomyelitis but showed soft tissue swelling. He was started on IV vancomycin and meropenem and podiatry was consulted. He had MRI of the left foot which showed osteomyelitis of the second distal phalanx and mild bone edema of the second middle phalanx representing early osteomyelitis. He had incision and drainage with resection of the mid and distal phalanx of the left second toe. Wound and bone cultures were taken. Cultures were pending at time of discharge. Patient however felt much better and requested to go home on 11/05/2021. Podiatry was agreeable to this and recommended p.o. Levaquin 500 mg daily for 7 days. Patient also had a history of DVT after previous surgery and so he was sent home on Eliquis 2.5 mg twice daily for 2 weeks for DVT prophylaxis. He is follow-up with his primary care doctor and follow-up with podiatry. Patient seen and examined prior to discharge. He had no active complaints and had an uneventful night. Review of systems otherwise negative. Labs and vitals reviewed. Medication reviewed and reconciled. Physical Exam Const alert, oriented x3, no apparent distress, average body habitus, healthy appearing and well nourished General Appearance: cooperative and comfortable HEENT normocephalic, head/scalp atraumatic, hearing grossly normal bilaterally and moist oral mucous membranes Eyes PERRL, EOMs intact bilaterally and conjunctivae normal Eyes Narrative: No scleral icterus Neck no lymphadenopathy, supple, no JVD and no carotid bruits Resp normal respiratory effort, no retractions, no use of accessory muscles and clear to auscultation bilaterally Auscultation: Negative for crackles, rales, rhonchi or wheezes Cardio regular rate, regular rhythm, S1 normal heart sound, S2 normal heart sound, no murmurs, no rub, no gallops, no clicks and no JVD GI normal to inspection, nondistended, normoactive bowel sounds, soft to palpation, non-tender and non-distended; Negative for hepatosplenomegaly Extremity Extremity Narrative: lef foot wrapped in bandage Skin Skin Narrative: as under extremity Neuro oriented x3, CN's II-XII intact bilaterally, moves all extremities and no focal motor deficits Neuro Narrative: Bilateral lower extremity neuropathy Sensorium / Orientation: awake and alert Speech: speech normal Motor Exam: strength 5/5 throughout Psych affect normal Weight / BMI Weight Weight: 247 lb 2.211 oz Body Mass Index (BMI) 32.5 ABG / Lab / Microbiology Data Result Diagrams: 11/05/21 04:47 11/05/21 04:47 Laboratory: Laboratory Results - last 24 hr 11/04/21 12:38: Random Vancomycin 11.0 11/05/21 04:47: WBC 10.5, RBC 4.37 L, Hgb 13.0, Hct 39.4 L, MCV 90.2, MCH 29.7, MCHC 33.0, RDW Std Deviation 47.9 H, RDW Coeff of Jay 14.5, Plt Count 195, MPV 9.5, Immature Gran % (Auto) 0.500, Neut % (Auto) 56.9, Lymph % (Auto) 27.5, [place] % (Auto) 10.3 H, Eos % (Auto) 4.3, Baso % (Auto) 0.5, Absolute Neuts (auto) 6.0, Absolute Lymphs (auto) 2.90, Nucleated RBC % 0 11/05/21 04:47: Sodium 140, Potassium 4.0, Chloride 111 H, Carbon Dioxide 23.0, Anion Gap 6, BUN 31 H, Creatinine 1.09, Estim Creat Clear Calc 69.23, Est GFR (MDRD) Af Amer 86, Est GFR (MDRD) Non-Af 71, BUN/Creatinine Ratio 28.4 H, Glucose 117 H, Calcium 9.0 Microbiology: Microbiology 11/03/21 13:20 Tissue - 2nd Toe Gram Stain - Final 11/03/21 13:20 Tissue - 2nd Toe Wound Culture - Preliminary Coag Negative Staph Alpha Hemolytic Streptococcus 11/01/21 23:40 Wound - Left Foot Gram Stain - Final 11/01/21 23:40 Wound - Left Foot Wound Culture - Preliminary Staphylococcus epidermidis Streptococcus mitis/ oralis Gram negative gregorio 11/03/21 13:23 Tissue - 2nd Toe Gram Stain - Final 11/03/21 13:23 Tissue - 2nd Toe Wound Culture - Preliminary No growth-Final to follow 11/01/21 21:32 Blood Culture (Wb) - Anticubital Left Blood Culture - Preliminary No growth in 48 hours. 11/01/21 21:42 Blood Culture (Wb) - Left Hand Blood Culture - Preliminary No growth in 48 hours. D/C Instructions Discharge Diet: Low fat / Low cholesterol Discharge Activity: Return to Normal Activity Weight Bearing Status: Partial weight bearing (weight to left heel for transfer only. use surgical shoe. ) Keep extremity elevated above heart level: Operative Extremity Call your doctor if your incision/area has: Continuous Slow Oozing, Sudden Increased Bleeding, Increased Redness and Foul Smelling Discharge Call your doctor if you observe: Fever of 101 or Higher, Coldness, Increased Pain and Change in Color Cleanse incision/area with: Do not get Incision Wet Please Follow Up With: Jose Holman DPM When: this week. my nurses will call you. Meaningful Use Info Meaningful Use Diagnoses (Choose all that apply): None applicable Discharge Plan Admission Admit Date/Time: 11/02/21 00:05 Primary Reason for Your Visit: osteomyelitis of the left foot. Attending Provider: Loreto Fish Primary Care Provider: Karla Ryan Consulting Providers: Jose Holman ; Katie Rodriguez Instructions Patient Instructions: Osteomyelitis Dc Discharge Orders/Prescriptions Prescriptions: New levofloxacin 500 mg tablet 500 mg PO DAILY Qty: 7 0RF Continued multivitamin [Daily Multiple] 1 EACH tablet 1 tab PO DAILY Label Comments: supplement allopurinol 100 mg tablet 100 tab PO DAILY Label Comments: TAKE 3 TABLETS BY MOUTH ONCE DAILY lisinopril 10 mg tablet 10 tab PO DAILY Label Comments: TAKE 1 TABLET BY MOUTH ONCE DAILY colchicine 0.6 mg tablet 1 tab PO MOWEFR Label Comments: TAKE ONE TABLET BY MOUTH ON SATURDAY, SATURDAY AND SATURDAY DIRECTED Referrals / Follow Up: Karla Ryan MD [Primary Care Provider] - Within 2 Weeks Jose Holman DPM [STAFF PHYSICIAN] - Within 1 Week Disposition Disposition (needs filled in before D/C Order can be placed): Home, Self Care Charges/Coding Visit Charges Inpatient E&M: 73447 Disch Hosp
[2021-11-05] MEDS: Lisinopril 10 MG Tablet PO (10:53)
[2021-11-05] MEDS: Enoxaparin 40 MG/0.4 ML Syringe SC (10:53)
[2021-11-05] MEDS: Allopurinol 100 MG Tablet PO (10:53)
== END 2021-11-05 12:10 | disposition home or self-care (01) | DRG 501 ==
LOC: ED 11-02 00:18 → MS3 11-02 00:28
PROVIDERS: Podiatrist Foot & Ankle Surgery; Admitting Provider Internal Medicine; Emergency Provider Emergency Medicine; PCP Internal Medicine; Visit Provider Student in an Organized Health Care Education/Training Program
PROC: 0Y6S0Z1 Detachment at Left 2nd Toe, High, Open Approach (ICD-10-PCS; principal; 2021-11-03 12:15)
DX: M86.172 Other acute osteomyelitis, left ankle and foot (principal); L03.116 Cellulitis of left lower limb; L97.529 Non-pressure chronic ulcer of other part of left foot with unspecified severity; I73.9 Peripheral vascular disease, unspecified; Z89.422 Acquired absence of other left toe(s); N18.32 Chronic kidney disease, stage 3b; G62.9 Polyneuropathy, unspecified; I12.9 Hypertensive chronic kidney disease with stage 1 through stage 4 chronic kidney disease, or unspecified chronic kidney disease; M20.42 Other hammer toe(s) (acquired), left foot; M10.9 Gout, unspecified; Z68.33 Body mass index [BMI] 33.0-33.9, adult; E66.9 Obesity, unspecified; Z79.01 Long term (current) use of anticoagulants; Z79.899 Other long term (current) drug therapy
CPT/HCPCS: 36415; 73630; 73660; 73718; 76000; 80048; 80202; 83735; 84100; 85025; 85652; 86141; 87015; 87040; 87070; 87075; 87077; 87102; 87116; 87176; 87186; 87205; 87206; 87640; 88304; 88305; 88307; 88311; 93005; 97161; 99251; 99284; J2185; J7030; J7040; J7050; A4216; G0463; J2405